=== PATIENT | female | born 1980 | race Caucasian/White ===

== ENCOUNTER 2017-12-22 21:16 | Inpatient (IN) ==
[2017-12-22] MEDS ORDERED: *HR* FentaNYL (PF) 100 MCG/2 ML VIAL IVP ONE (22:29)
[2017-12-22] MEDS ORDERED: *HR* Heparin 5,000 UNIT/ML VIAL IVP ONE (22:48)
[2017-12-22] MEDS ORDERED: *HR* Heparin 5,000 UNIT/ML VIAL IVP PRN ×2 (22:48)
[2017-12-22 22:59] LABS: Basophils # 0.1 K/mcL (0.0-0.2); Basophils % 0.5 %; Eosinophils # 0.5 K/mcL (0.0-0.6); Eosinophils % 5.3 %; Hemoglobin 12.6 g/dL (11.5-15.4); Immature Granulocytes % 0.5 % (0-4); Lymphocytes # 1.6 K/mcL (0.6-4.6); Lymphocytes % 16.9 %; Mean Corpuscular HGB Conc 34.1 g/dL (31.6-35.5); Mean Corpuscular Hemoglobin 30.2 pg (28.0-33.3); Mean Corpuscular Volume 88.7 fL (83.0-100.0); Mean Platelet Volume 9.4 fL (9.4-12.4); Monocytes % 10.1 %; Neutrophils # 6.5 K/mcL (1.6-8.9); Platelet Count 238 K/mcL (140-400); Red Blood Count 4.17 M/mcL (3.82-4.97); Red Cell Distribution Width 13.3 % (11.5-14.5); Segmented Neutrophils % 66.7 %
--- NOTE | 2017-12-22 23:03 | Emergency Department Note ---
Disposition Clinical Impression: Deep vein thrombosis of lower extremity Qualifiers: Affected thrombotic vein of extremity: femoral Chronicity: acute Laterality: left Qualified Code(s): I82.412 - Acute embolism and thrombosis of left femoral vein Disposition: Still a Patient Referrals: Tayla Kaur MD [Primary Care Provider] - General Adult [facility] - General Chief complaint: ED Extremity Problem,Nontraumatic Stated complaint: Left leg DVT Time Seen by Provider: 12/22/17 22:10 Source: patient - History of Present Illness Pain Scale: 8 - Related Data Previous Rx's Medication Instructions Recorded Enoxaparin [Lovenox] 70 mg SQ Q12HR #10 syr 12/21/17 Warfarin [Coumadin] 5 mg PO DAILY #30 tablet 12/21/17 Allergies Allergy/AdvReac Type Severity Reaction Status Date / Time No Known Allergies Allergy Verified 12/21/17 14:47 Past Medical History - Past Medical History Medical history: Reports: no medical history Psychiatric history: Reports: no psych history - Social History Smoking Status: Never smoker Smokeless Tobacco Status: No Alcohol use: Reports: none Drug use: Reports: none Physical Exam - General General appearance: alert, in no apparent distress Course - Reevaluation(s) Reevaluation #1: Attestation Note I examined this patient and my medical decision-making was reviewed with the Resident Physician, KATIE PANIAGUA. I agree with the documented findings, disposition and treatment plan as described except to the extent set forth below. I have personally performed a face to face evaluation on this patient. I have reviewed and agree with the care plan. Briefly: 37-year-old female who I saw yesterday with Dr. Lonny Varela, please see copy of her note for details that encounter. Patient briefly was 5 days and with left leg pain and swelling Doppler study showed a very proximal superficial femoral vein or DVT. Patient was offered Cymbalta but declined because she is breast-feeding she was discharged home with Coumadin and Lovenox. Patient returns today saying that the pain is worsening and she is concerned. Denies shortness breath or chest pain. She is afebrile stable vital signs. Patient was offered fentanyl for pain control but declined because she is nursing. Patient will get a PT ED BMP and CBC. She will be heparinized and admitted for further evaluation and management. Time: 23:01 Vital Signs Temperature 98.1 F 12/22/17 21:26 Pulse Rate 78 12/22/17 21:26 Respiratory Rate 16 12/22/17 21:26 Blood Pressure 135/91 12/22/17 21:26 O2 Sat by Pulse Oximetry 98 12/22/17 21:26 Temperature 98.1 F 12/22/17 21:26 Pulse Rate 78 12/22/17 21:26 Respiratory Rate 16 12/22/17 21:26 Blood Pressure 135/91 12/22/17 21:26 O2 Sat by Pulse Oximetry 98 12/22/17 21:26 Oxygen Delivery Oxygen Delivery Room Air Medical Decision Making - Lab Data Result diagrams: 12/22/17 22:30 Lab Results 12/22/17 Range/Units 22:30 WBC 9.7 (4.3-11.1) K/mcL RBC 4.17 (3.82-4.97) M/mcL Hgb 12.6 (11.5-15.4) g/dL Hct 37.0 (35.3-44.9) % MCV 88.7 (83.0-100.0) fL MCH 30.2 (28.0-33.3) pg MCHC 34.1 (31.6-35.5) g/dL RDW 13.3 (11.5-14.5) % Plt Count 238 (140-400) K/mcL MPV 9.4 (9.4-12.4) fL Immature Gran % 0.5 (0-4) % Seg Neutrophils % 66.7 % Lymphocytes % 16.9 % Monocytes % 10.1 % Eosinophils % 5.3 % Basophils % 0.5 % Neutrophils # 6.5 (1.6-8.9) K/mcL Lymphocytes # 1.6 (0.6-4.6) K/mcL Monocytes # 1.0 (0.0-1.3) K/mcL Eosinophils # 0.5 (0.0-0.6) K/mcL Basophils # 0.1 (0.0-0.2) K/mcL
--- NOTE | 2017-12-22 23:14 | Emergency Department Note ---
Disposition Clinical Impression: Deep vein thrombosis of lower extremity Qualifiers: Affected thrombotic vein of extremity: femoral Chronicity: acute Laterality: left Qualified Code(s): I82.412 - Acute embolism and thrombosis of left femoral vein Disposition: Admitted As Inpatient Condition: Good Extremity Problem HPI - General Chief complaint: ED Extremity Problem,Nontraumatic Stated complaint: Left leg DVT Time Seen by Provider: 12/22/17 22:10 Source: patient Mode of arrival: private vehicle Limitations: no limitations Nursing Notes Reviewed: Yes Vital Signs Reviewed: Yes - History of Present Illness HPI Narrative: 37-year-old female 6 days who presents to the ER with a chief complaint of left lower shimmy pain. Patient was seen here yesterday for left lower shimmy pain and was diagnosed with a proximal DVT. She was started on Lovenox as well as Coumadin. She reports today the pain intensified which prompted her to come back. She denies any chest pain or shortness of breath. She reports compliance with her medications. She is concerned because she can feel something up into her groin. No other complaints. Pt Subjective Complaint: extremity pain, extremity swelling Onset (ago): day(s) Consistency: constant Injury Location: left, lower extremity Pain Scale: 8 Radiation: none Improves with: nothing Worsens with: nothing Associated symptoms: Reports: denies other symptoms - Related Data Previous Rx's Medication Instructions Recorded Enoxaparin [Lovenox] 70 mg SQ Q12HR #10 syr 12/21/17 Warfarin [Coumadin] 5 mg PO DAILY #30 tablet 12/21/17 Allergies Allergy/AdvReac Type Severity Reaction Status Date / Time No Known Allergies Allergy Verified 12/21/17 14:47 All systems ED: reviewed and negative except as stated. Cardiovascular: Denies: chest pain Respiratory: Denies: dyspnea Musculoskeletal: Reports: other (Left lower extremity pain, swelling) Past Medical History - Past Medical History Attestation: Yes The following information was validated with the patient. Source: patient Medical history: Reports: no medical history Psychiatric history: Reports: no psych history - Social History Smoking Status: Never smoker Smokeless Tobacco Status: No Alcohol use: Reports: none Drug use: Reports: none Physical Exam - General Limitations: no limitations General appearance: alert, in no apparent distress - Head Head exam: atraumatic, normocephalic - Eye Eye exam: Present: normal appearance - ENT ENT exam: normal exam - Neck Neck exam: Present: normal inspection, full ROM - Chest Chest inspection: Present: normal inspection, symmetric chest wall rise - Respiratory Respiratory exam: Present: normal lung sounds bilaterally - Cardiovascular Cardiovascular exam: Present: regular rate, normal rhythm, normal heart sounds - Abdominal Exam Abdominal exam: Present: soft, Non-Tender. Absent: tenderness - Extremities Exam Extremities exam: Present: normal inspection, full ROM - Expanded Upper Extremity Exam Shoulder exam: Present: normal inspection, full ROM Arm exam: Present: normal inspection, full ROM Elbow exam: Present: normal inspection, full ROM Forearm/Wrist exam: Present: normal inspection, full ROM Hand exam: Present: normal inspection, full ROM - Expanded Lower Extremity Exam Hip/Pelvis exam: Present: normal inspection, full ROM Upper leg exam: Present: normal inspection, full ROM Knee exam: Present: normal inspection, full ROM Lower leg exam: Present: normal inspection, full ROM, swelling (1+ swelling to the left lower shimmy.) Ankle exam: Present: normal inspection, full ROM Foot/toe exam: Present: normal inspection, full ROM Neurovascular/Tendon exam: Present: normal capillary refill. Absent: pulse deficit, motor deficit, sensory deficit - Skin Skin exam: Present: warm Course Course Narrative: Patient seen and examined. Neurovascularly intact in the left lower extremity. Plan to heparinize the patient check labs and admit for failed outpatient therapy. Patient was offered fentanyl and declines due to concern for breast- feeding issue. - Reevaluation(s) Reevaluation #1: Patient was concerned about pain medication while breast-feeding. Agreeable with Motrin at this time. Discussed the rationale for heparinizing given her proximal clot and concern for potential propagation with her pain. Patient agreeable with our plan and for admission. Vital Signs Temperature 98.1 F 12/22/17 21:26 Pulse Rate 78 12/22/17 21:26 Respiratory Rate 16 12/22/17 21:26 Blood Pressure 135/91 12/22/17 21:26 O2 Sat by Pulse Oximetry 98 12/22/17 21:26 Temperature 98.1 F 12/22/17 21:26 Pulse Rate 78 12/22/17 21:26 Respiratory Rate 16 12/22/17 21:26 Blood Pressure 135/91 12/22/17 21:26 O2 Sat by Pulse Oximetry 98 12/22/17 21:26 Oxygen Delivery Oxygen Delivery Room Air Extremity Problem, Nontraumati - MDM Narrative Medical decision making narrative: 37-year-old female 6 days with left lower extremity DVT. Proximal just adjacent to the confluence to the iliac. Worsening pain today which prompted reevaluation. She is neurovascularly intact in the left lower extremity. Her pain is controlled at this time. Given the proximity of her DVT as well as pain there is always concern for potential propagation. These findings we chose to heparinize the patient and admit for further evaluation. She has no symptoms to suggest pulmonary embolism, denies chest pain or shortness of breath. No oxygen requirement. No other complaints. - Lab Data Lab results reviewed: Yes I reviewed the patient's lab results. Result diagrams: 12/22/17 22:30 12/22/17 22:30 Lab Results 12/22/17 12/22/17 12/22/17 Range/Units 22:30 22:30 22:30 WBC 9.7 (4.3-11.1) K/mcL RBC 4.17 (3.82-4.97) M/mcL Hgb 12.6 (11.5-15.4) g/dL Hct 37.0 (35.3-44.9) % MCV 88.7 (83.0-100.0) fL MCH 30.2 (28.0-33.3) pg MCHC 34.1 (31.6-35.5) g/dL RDW 13.3 (11.5-14.5) % Plt Count 238 (140-400) K/mcL MPV 9.4 (9.4-12.4) fL Immature Gran % 0.5 (0-4) % Seg Neutrophils % 66.7 % Lymphocytes % 16.9 % Monocytes % 10.1 % Eosinophils % 5.3 % Basophils % 0.5 % Neutrophils # 6.5 (1.6-8.9) K/mcL Lymphocytes # 1.6 (0.6-4.6) K/mcL Monocytes # 1.0 (0.0-1.3) K/mcL Eosinophils # 0.5 (0.0-0.6) K/mcL Basophils # 0.1 (0.0-0.2) K/mcL APTT 31.2 (26.0-36.0) Seconds Sodium 138 (136-145) mEq/L Potassium 4.1 (3.5-5.1) mEq/L Chloride 106 (98-107) mEq/L Carbon Dioxide 26 (23-29) mEq/L BUN 9 (6-20) mg/dL Creatinine 0.55 L (0.60-1.20) mg/dL Est GFR ( Amer) > 60 (> 60) Est GFR (Non-Af Amer) > 60 (> 60) BUN/Creatinine Ratio 16 (6-26) Glucose 101 (70-105) mg/dL Calculated Osmolality 285 (280-300) Calcium 9.2 (8.6-10.3) mg/dL S.B.A.R. - Estefania.Vera.AMarge Situation: Demographics, MOA Background: Presenting Complaint, Relevant PMH, Meds, & Allergies Assessment: Course and respsone to treatment, Exam Concerns, Patient/Family Expectation, Pertinant Lab Results Recommendation: Barrier(s) to disposition, Recommendation based on pending studies, treatments, or consults S.B.A.RPiper Report Given to: Dr. Poly PerezAMarge Repor Time: 23:58
[2017-12-22 23:17] LABS: BUN/Creatinine Ratio 16 (6-26); Blood Urea Nitrogen 9 mg/dL (6-20); Calcium 9.2 mg/dL (8.6-10.3); Carbon Dioxide 26 mEq/L (23-29); Chloride 106 mEq/L (98-107); Glucose 101 mg/dL (70-105); Osmolality,Calculated 285 (280-300); Potassium 4.1 mEq/L (3.5-5.1); Sodium 138 mEq/L (136-145); eGFR For African Americans > 60 (> 60); eGFR For Non-African Americans > 60 (> 60)
[2017-12-22] MEDS ORDERED: Ibuprofen 600 MG TABLET PO ONE (23:18)
[2017-12-22] MEDS: Heparin 25,000 UNIT/500 ML D5W 25,000 UNIT/500 ML BAG IVC SCH (23:42)
[2017-12-23] MEDS ORDERED: Naloxone 0.4 MG/ML INJ IVP PRN (02:32)
[2017-12-23] MEDS ORDERED: Isovue-370 500 ML INFUS..BTL IV ONE (02:42)
--- NOTE | 2017-12-23 02:53 | Internal Med History&Physical ---
Date of Encounter: 12/23/17 Time of Encounter: 00:55 Internal Medicine - H&P: HPI Chief complaint: LLE DVT; pain Admitted From: Emergency Dept Plans for Post Hospital Care: Home History of present illness: Ms. Salguero is a 37 year old female who presents to the ER tonight with worsening pain, swelling, and cramps in her left leg. She also has developed pain in her left inguinal/pelvic area as well. She was diagnosed with left lower extremity DVT in the ER yesterday. She was discharged home on Lovenox and Coumadin and she returned today with worsening symptoms. Given her symptoms , failed outpatient treatment, and concern for worsening DVT, she was admitted to the hospitalist service. I discussed the case with the ER staff and reviewed her Doppler study of her left lower extremity. The Doppler study reveals occlusive DVT of the left external iliac vein and common femoral vein. This is a proximal DVT and at high risk for embolization to her lungs. I accepted the patient on admission and I saw her on the floor. Upon my assessment of the patient, she has been started on heparin drip and is feeling better now. Her left extremity is significantly swollen compared to right lower extremity. She is 6 days and delivered vaginally at [facility] in [place]. and delivery were uneventful. She was discharged home several days ago and then noted swelling and pain in her left leg about 2-3 days ago. She was diagnosed with DVT yesterday and started on appropriate treatment measures. She denies any chest pain, palpitations, or shortness of breath. She does complain, however, of pain in her pelvic and left inguinal area now which are new compared to yesterday. This was her third and delivery, and her first 2 pregnancies and deliveries were uneventful. Family history is negative for any DVT or PE. She denies any extensive or prolonged travel. She did not require bed rest during . She is an active individual and is a runner. She does not smoke. She does not take any hormonal contraceptives. However, prior to this , she required some hormonal treatments as this last was via in vitro fertilization. Past Med Surg Social Fam HX - Past Medical History Attestation: Yes The following information was validated with the patient. Source: patient, old records reviewed Medical history: no medical history Psychiatric history: no psych history - Past Surgical History Surgical History: no surgical history - Social History Smoking Status: Never smoker Smokeless Tobacco Status: No Alcohol use: none Drug use: none Occupational status: employed Current living situation: Home, With Family Activity Level: Independent ambulation, Very active Recent Out of Country Travel Within the Last 8 Weeks: No - Family History Mother Living Status: Still Living Father Living Status: Still Living - Additional Family History Additional family history: No FH DVT/PE. Internal Medicine - H&P: Meds Enoxaparin [Lovenox] 70 mg SQ Q12HR #10 syr 12/21/17 [Rx] Warfarin [Coumadin] 5 mg PO DAILY #30 tablet 12/21/17 [Rx] 3 Allergy/AdvReac Type Severity Reaction Status Date / Time No Known Allergies Allergy Verified 12/21/17 14:47 - Constitutional Constitutional: no chills, no fever(s), no night sweats - EENT Eyes: no blurry vision, no change in vision Ears: no ear pain, no tinnitus Nose, mouth and throat: no nasal congestion, no nasal discharge, no sinus pressure, no sore throat - Cardiovascular Cardiovascular ROS IM: no chest pain, no dyspnea, no dyspnea on exertion, no lightheadedness, no palpitations, no paroxysmal nocturnal dyspnea - Respiratory Respiratory: no cough, no dyspnea, no hemoptysis, no dyspnea on exertion, no wheezing, no chest congestion - Gastrointestinal Gastrointestinal: no abdominal pain, no diarrhea, no hematemesis, no hematochezia, no melena, no nausea, no vomiting - Genitourinary Genitourinary: pelvic pain (left pelvic/groin area), no dysuria, no flank pain, no hematuria - Musculoskeletal Musculoskeletal ROS IM: muscle cramps, myalgias, no back pain Additional comments: pain/swelling/cramping of left leg up to groin and lower pelvis - Integumentary Integumentary IM: no rash, no jaundice - Neurological Neurological ROS: no dizziness, no focal weakness, no frequent falls, no weakness - Psychiatric Psychiatric: no anxiety, no depression - Endocrine Endocrine IM: no polydipsia, no polyuria - Hematologic/Lymphatic Hematologic/Lymphatic: no easy bruising, no lymphadenopathy - Allergic/Immunologic Allergic/Immunologic: no wheezing, no GI upset with certain foods - Constitutional Vitals: Temp Pulse Resp BP Pulse Ox 97.7 F 74 14 126/75 97 05/14/18 01:04 12/23/17 01:04 12/23/17 01:04 12/23/17 01:04 12/23/17 01:04 General appearance: Present: cooperative, A&O X 3, pleasant, no acute distress, answers questions appropriately - Head Head exam: Present: normal inspection - Eye Eye exam: Present: EOMI, normal appearance, PERRL. Absent: scleral icterus Pupils: Present: normal accommodation - ENT ENT exam: Present: mucous membranes moist, normal exam - Neck Neck exam general surgery: Present: full ROM, supple. Absent: tenderness, nuchal rigidity, thyromegaly - Respiratory Respiratory exam: Present: CTAB. Absent: chest wall tenderness, rales, respiratory distress, rhonchi, wheezes - Cardiovascular Cardiovascular exam: Present: RRR, +S1, +S2. Absent: diastolic murmur, systolic murmur - GI/Abdominal GI/Abdominal exam: Present: normal bowel sounds, soft. Absent: guarding, hepatomegaly, mass, rebound, splenomegaly - Additional comments: pain upon palpation of left femoral/inguinal area and into LLQ/pelvic region - Extremities Exam Extremities exam: Present: calf tenderness (left), full ROM, normal capillary refill, tenderness (left calf/thigh/inguinal area), warm. Absent: joint swelling Additional comments: left leg larger/asymmetrical compared to right leg - Back Exam Back exam: Present: normal inspection. Absent: CVA tenderness (L), CVA tenderness (R) - Neurological Exam Neurological exam: Present: alert, CN II-XII intact, oriented X3, no focal deficits - Psychiatric Psychiatric exam: Present: normal affect, normal mood - Skin Skin exam: Present: dry, warm. Absent: rash Internal Med - H&P Results - Labs CBC & Chem 7: 12/22/17 22:30 12/22/17 22:30 Labs: Preliminary report of LLE Doppler reviewed -- as noted above - VTE Reasons for not Prescribing Prophylaxis: Not indicated-Anticoagulated or INR therapeutic - Assessment and plan (1) DVT (deep venous thrombosis) Current Visit: Yes Status: Acute Assessment and plan: 1. Patient failed outpatient treatment and LLE pain/swelling worse now despite Lovenox bridge and Coumadin therapy initiated at first ER visit. 2. Heparin drip started and will continue until symptoms improved and INR therapeutic. 3. Given the extensive nature of LLE DVT into iliac vessels, will proceed with CT abdomen/pelvis to evaluate for IVC thrombus. 4. Consult HEM/ONC for possible hypercoagulable work-up and treatment guidance in the setting of and . 5. , in and of itself, is a hypercoagualble state and thus no further work up may be necessary. Nonetheless, given the clot burden and lack of other risk factors, will ask HEM/ONC for guidance. 6. Consider vascular surgery consult and IVC filter if there is evidence of IVC thrombus. Qualifiers: DVT location: lower extremity Affected thrombotic vein of extremity: iliac Chronicity: acute Laterality: left Qualified Code(s): I82.422 - Acute embolism and thrombosis of left iliac vein (2) Lactating mother Current Visit: Yes Status: Acute Assessment and plan: 1. Mother is breast feeding. 2. Heparin and Coumadin safest anticoagulation for mother and baby -- discussed with pharmacy.
[2017-12-23 05:34] LABS: Basophils % 0.4 %; Eosinophils # 0.4 K/mcL (0.0-0.6); Eosinophils % 4.6 %; Hematocrit 31.8 % (35.3-44.9); Hemoglobin 11.1 g/dL (11.5-15.4); Immature Granulocytes % 0.6 % (0-4); Lymphocytes # 1.9 K/mcL (0.6-4.6); Lymphocytes % 21.2 %; Mean Corpuscular HGB Conc 34.9 g/dL (31.6-35.5); Mean Corpuscular Hemoglobin 30.3 pg (28.0-33.3); Mean Corpuscular Volume 86.9 fL (83.0-100.0); Monocytes # 1.1 K/mcL (0.0-1.3); Monocytes % 12.4 %; Neutrophils # 5.5 K/mcL (1.6-8.9); Platelet Count 189 K/mcL (140-400); Red Blood Count 3.66 M/mcL (3.82-4.97); Red Cell Distribution Width 13.4 % (11.5-14.5); Segmented Neutrophils % 60.8 %
[2017-12-23 05:39] LABS: INR 1.3; Prothrombin Time 14.4 Seconds (9.4-12.1)
[2017-12-23 05:54] LABS: Alanine Aminotransferase 9 Units/L (7-52); Albumin/Globulin Ratio 1.2 (1.1-2.2); Alkaline Phosphatase 106 Units/L (34-104); Aspartate Amino Transferase 11 Units/L (13-39); BUN/Creatinine Ratio 18 (6-26); Bilirubin,Total 0.3 mg/dL (0.3-1.0); Blood Urea Nitrogen 7 mg/dL (6-20); Calcium 8.4 mg/dL (8.6-10.3); Carbon Dioxide 23 mEq/L (23-29); Chloride 109 mEq/L (98-107); Globulin 2.5 g/dL (2.4-3.5); Glucose 85 mg/dL (70-105); Osmolality,Calculated 281 (280-300); Potassium 3.8 mEq/L (3.5-5.1); Sodium 137 mEq/L (136-145); Total Protein 5.5 g/dL (6.4-8.9); eGFR For African Americans > 60 (> 60); eGFR For Non-African Americans > 60 (> 60)
[2017-12-23] MEDS: 0.9 % Sodium Chloride 1,000 ML IVC SCH ×2 (06:20→15:26)
--- NOTE | 2017-12-23 08:25 | Internal Med Progress Note ---
Date of Encounter: 12/23/17 Time of Encounter: 08:22 - Assessment and plan (1) DVT (deep venous thrombosis) Current Visit: Yes Status: Acute Assessment and plan: Patient failed outpatient treatment and LLE pain/swelling worse now despite Lovenox bridge and Coumadin therapy initiated at first ER visit. CT abdomen/pelvis negative for IVC thrombus - Continue Heparin drip and bridge to coumadin - Heme/Onc consulted, recommendations appreciated - Vascular Surgery consulted for consideration of IVC filter, recommendations appreciated. Qualifiers: DVT location: lower extremity Affected thrombotic vein of extremity: iliac Chronicity: acute Laterality: left Qualified Code(s): I82.422 - Acute embolism and thrombosis of left iliac vein (2) Lactating mother Current Visit: Yes Status: Acute Assessment and plan: Breast feeding mother. Discussed with pharmacy on admission on safety and noted that heparin and coumadin are safe anticoagulants. - Time Spent With Patient Total time spent is greater than 50% in coordination of care (as documented) at patient's floor/unit and/or counseling patient: - Subjective Interval history: No acute events. She denies chest pain, SOB, palpitations, pain outside of leg pain. - Constitutional Vitals: Temp Pulse Resp BP Pulse Ox 98.2 F 52 18 122/81 98 12/23/17 07:12 12/23/17 07:12 12/23/17 07:12 12/23/17 07:12 12/23/17 07:12 General appearance: Present: cooperative, A&O X 3, pleasant, no acute distress, answers questions appropriately Exam: - Head Head exam: Present: normal inspection - Eye Eye exam: Present: EOMI, normal appearance, PERRL. Absent: scleral icterus Pupils: Present: normal accommodation - ENT ENT exam: Present: mucous membranes moist, normal exam - Neck Neck exam general surgery: Present: full ROM, supple. - Respiratory Respiratory exam: respiratory distress - Cardiovascular Cardiovascular exam: Present: RRR,. Absent: diastolic murmur, systolic murmur - Extremities Exam Extremities exam: Absent: joint swelling Additional comments: left leg larger than right leg - Skin Skin exam: Present: dry, warm. Absent: rash Note: Patient requests to limit physical exam since is in room. Internal Medicine: Result - Labs CBC & Chem 7: 12/23/17 05:21 12/23/17 05:21 Labs: Short CBC 12/23/17 Range/Units 05:21 WBC 9.0 (4.3-11.1) K/mcL Hgb 11.1 L D (11.5-15.4) g/dL Hct 31.8 L (35.3-44.9) % Plt Count 189 (140-400) K/mcL Neutrophils # 5.5 (1.6-8.9) K/mcL BMP 12/23/17 05:21 Sodium 137 Potassium 3.8 Chloride 109 H Carbon Dioxide 23 BUN 7 Creatinine 0.40 L Glucose 85 Calcium 8.4 L Liver Function 12/23/17 Range/Units 05:21 Total Bilirubin 0.3 (0.3-1.0) mg/dL AST 11 L (13-39) Units/L ALT 9 (7-52) Units/L Alkaline Phosphatase 106 H (34-104) Units/L Albumin 3.0 L (3.5-5.7) g/dL - ABG Interpretation ABG results: PT/INR, D-dimer PT 14.4 Seconds (9.4-12.1) H 12/23/17 05:21 - Impressions Impressions Abdomen/Pelvis CT 12/23/17 02:42 IMPRESSION: Thrombi are identified in the left common femoral vein as well as the left common iliac vein with extension into both the left external and internal iliac veins. There is no definite evidence for extension to the inferior vena cava. D/ / Gato oMntesinos MD / Gato Montesinos MD Interpreting Provider: Gato Montesinos MD - VTE Reasons for not Prescribing Prophylaxis: Not indicated-Anticoagulated or INR therapeutic Consult Discharge Plan - Plan Referrals: Tayla Kaur MD [Primary Care Provider] -
[2017-12-23] MEDS: Acetaminophen 325 MG TABLET PO PRN ×2 (09:09→15:12)
--- NOTE | 2017-12-23 14:05 | Vascular/Endovasc Consult Note ---
Date of Encounter: 12/23/17 Time of Encounter: 12:30 Assessment and Plan (1) DVT (deep venous thrombosis) Current Visit: Yes Status: Acute The pathophysiology and natural history of venous thromboembolism was discussed the patient WAS are answered. The patient is a left iliac deep vein thrombosis. She was initially treated with Lovenox at 1.5 mg/kg per day and was being transitioned to Coumadin. However symptoms worsened over 24 hours so she was admitted and started on a heparin drip. She reports decreased slightly decreased symptoms since admission. However still has left sided pelvic and inguinal pain. She reports that her edema has decreased since admission. It did not appear that she failed anticoagulation at this point. Recommend continued intravenous heparin until the patient is therapeutic on Coumadin therapy and her goal INR should be 2.0-3.0. At this time an inferior vena cava filter is not indicated. If the patient continues to experience persistent symptoms of leg pain and swelling, she may be a candidate for venous mechanical thrombectomy. The risks, benefits and alternatives were discussed and all questions were answered. The patient will be reassessed tomorrow for further evaluation. Qualifiers: DVT location: lower extremity Affected thrombotic vein of extremity: iliac Chronicity: acute Laterality: left Qualified Code(s): I82.422 - Acute embolism and thrombosis of left iliac vein - History of Present Illness Consult date: 12/23/17 Requesting physician: Prosper Ramirez Consult reason: Deep vein thrombosis Chief complaint: Left lower extremity DVT History of present illness: Ms. Salguero is a 37 year old female who recently delivered her child. She reports that prior to delivery she was extremity bilateral lower extremity edema. She began to experience left lower extremity pain and swelling aorta the emergency room she was diagnosed with a left lower extremity deep vein thrombosis. She was started on Lovenox at 1.5 mg/kg daily and Coumadin therapy. This happened on 12/21/2017. The patient return to emergency room on 12/22/2017 with worsening symptoms in the left lower extremity with edema and pelvic pain. Continue his CT scan revealed iliac vein thrombosis. She was admitted and started on heparin drip and Coumadin for long-term oral anticoagulation. Vascular surgery was counseled for further evaluation. The patient currently denies chest pain or shortness of breath. Past Med Surg Social Fam HX - Past Medical History Medical history: no medical history Psychiatric history: no psych history - Past Surgical History Surgical History: no surgical history - Social History Smoking Status: Never smoker Smokeless Tobacco Status: No Alcohol use: none Drug use: none - Family History Mother Living Status: Still Living Father Living Status: Still Living Medications and Allergies Enoxaparin [Lovenox] 70 mg SQ Q12HR 12/23/17 [History] Pnv No.122/Iron/Folic Acid [ Multi Tablet] 1 tab PO DAILY 12/23/17 [ History] Warfarin [Coumadin] 5 mg PO DAILY 12/23/17 [History] 3 Allergy/AdvReac Type Severity Reaction Status Date / Time No Known Allergies Allergy Verified 12/23/17 12:18 All Systems Review: The remainder of the systems were reviewed and are negative - Constitutional Constitutional: no chills, no fever(s) - Cardiovascular Cardiovascular: no chest pain at rest, no dyspnea at rest - Respiratory Respiratory: no cough Exam Vital Signs, Last 4 Hours Temp Pulse Resp BP Pulse Ox 12/23/17 11:38 97.7 F 60 16 102/68 97 General: Present: Conversant, No Apparent Distress HEENT: Present: Trachea midline, Pupils equal Neck: Absent: JVD, Lymphadenopathy Cardiac: Present: Reg Rate and Rhythm, Normal S1 and S2, No Murmur Lungs: Present: Normal Breath Sounds, No Wheeze, Rales, Rhonchi Neuro: Present: Alert and responsive, No focal deficits noted, Motor nerves grossly intact, Sensory nerves grossly intact Abdomen: Present: Soft, Non-tender. Absent: Masses Vascular: Present: Normal capillary refill, Pulse, normal, Edema (1+ left lower extremity edema, no right lower extremity edema). Absent: Cyanosis Skin: Present: No rashes noted on visualized skin Musculoskeletal: Present: No Chest Wall Tenderness Consult Discharge Plan - Plan Referrals: Tayla Kaur MD [Primary Care Provider] -
--- NOTE | 2017-12-23 14:27 | Oncology Inp Consult Note ---
<David Black - Last Filed: 12/24/17 10:56> Date of Encounter: 12/23/17 - Data of Consult Requesting Physician: Lamin Mccann MD Primary Care Provider: Tayla Kaur Family Provider: Tayla Kaur - Consult Narrative History of present illness: Ms. Salguero is a 37 year old female Medications and Allergies Enoxaparin [Lovenox] 70 mg SQ Q12HR 12/23/17 [History] Pnv No.122/Iron/Folic Acid [ Multi Tablet] 1 tab PO DAILY 12/23/17 [ History] Warfarin [Coumadin] 5 mg PO DAILY 12/23/17 [History] 3 Allergy/AdvReac Type Severity Reaction Status Date / Time No Known Allergies Allergy Verified 12/23/17 12:18 Oncology - Exam - Constitutional Vitals: Temp Pulse Resp BP Pulse Ox 98.7 F 71 16 124/81 96 12/24/17 07:10 12/24/17 07:10 12/24/17 07:10 12/24/17 07:10 12/24/17 07:10 Oncology - Results Labs: Short CBC 12/23/17 12/24/17 Range/Units 22:45 02:00 WBC 9.3 (4.3-11.1) K/mcL Hgb 11.0 L 10.9 L (11.5-15.4) g/dL Hct 32.5 L 31.9 L (35.3-44.9) % Plt Count 216 (140-400) K/mcL Urine 12/24/17 Range/Units 00:35 Urine Color Yellow (Yellow) Urine Clarity Cloudy A (Clear) Urine pH 6.0 (5.0-8.0) pH Units Ur Specific [place] 1.021 (1.010-1.025) Urine Protein Negative (Neg-Trace) mg/dL Urine Glucose (UA) Normal (Normal) mg/dL Consult Discharge Plan - Plan Referrals: Tayla Kaur MD [Primary Care Provider] - - Attending Attestation seen and examined patient and agree with assessment cruz plan. 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 It is a provoked clot. Difficult to say whether she is having worsening symptoms with 1.5 mg/kg lovenox. On heparin gtt. Will continue and see how she does and hopefulkly avoid filter. She may need thrombectomy though. If symptoms do improve, would reommend 1 mg/kg lovenox bid with coumadin eventually as she is breast feeding. <Winter Williamson - Last Filed: 12/24/17 12:33> Date of Encounter: 12/23/17 Time of Encounter: 14:27 Assessment and Plan (1) DVT (deep venous thrombosis) Status: Acute Assessment and plan: Provoked- patient is with recent uncomplicated vaginal delivery. No thrombophilia workup warranted. Agree with heparin or lovenox bridge to coumadin. She will need short term anticoagulation (3-4 months) given that this is the patients first provoked thrombotic event. If she is not therapeutic at time for discharge would recommend lovenox bridge dosing at 1 mg/kg/dose every 12 hours Will consult manager social work for coumadin clinic referral. Recommend patient continue heparin at least through night prior to transitioning to heparin and will re-evaluate her symptoms in morning. Vascular consult reviewed-agree with re-assessment tomorrow and to evaluate potential role for thrombectomy if symptoms persist. Unfortunately, we are unable to ascertain whether her thrombosis has extended into the internal/external iliac veins as viewed on CT or if this was present at time of diagnosis-this was not able to be assessed properly on venous doppler due to the fact that this is not well visualized on doppler studies. She reports that her edema may be improving however, her left inguinal pain persists. Nonetheless, her clot burden may warrant thrombectomy. Please refer to Dr. Black's attestation below for additional details. Qualifiers: DVT location: lower extremity Affected thrombotic vein of extremity: iliac Chronicity: acute Laterality: left Qualified Code(s): I82.422 - Acute embolism and thrombosis of left iliac vein - Data of Consult Patient: new to practice Consult date: 12/23/17 Requesting Physician: Reynold Pang MD Primary Care Provider: Tayla Kaur Family Provider: Tayla Kaur - Consult Narrative Reason for consult: Acute LLE DVT History of present illness: Ms. Salguero is a 37 year old female with no prior medical history. Apparently shortly following her delivery she was evaluated at an outside [facility] system for LLE pain/edema and was prescribed prednisone to help with the swelling. She then initially presented to [facility] ER on 12/21/17 with report of LLE pain/edema. She was 5 days at this time following uncomplicated vaginal delivery. Venous doppler revealed acute thrombosis in the left distail iliac vein and common femoral vein. She was started on lovenox to heparin bridge. She is her . She presented to [facility] ED on 12/22 with report of worsening LLE pain/edema, states she discussed with her HOUSE MOTHER who asked that she present to ER for further evaluation. CT abdomen/pelvis on 12/23/17 reveals "Thrombi are identified in the left common femoral vein as well as the left common iliac vein with extension into both the left external and internal iliac veins. There is no definite evidence for extension to the inferior vena cava." She was admitted with heparin gtt bridge to coumadin. Vascular has been consulted and recommended against IVC at this juncture, but may may need thrombectomy in future if symptoms do not improve. Past Med Surg Social Fam HX - Past Medical History Medical history: no medical history Psychiatric history: no psych history - Past Surgical History Surgical History: no surgical history - Social History Smoking Status: Never smoker Smokeless Tobacco Status: No Alcohol use: none Drug use: none - Family History Mother Living Status: Still Living Father Living Status: Still Living Constitutional: Present: fatigue. Absent: anorexia, fever(s) Eyes: Absent: change in vision Nose, mouth and throat: Absent: dysphagia Cardiovascular: Absent: chest pain, irregular heart rhythm Respiratory: Absent: cough, dyspnea, hemoptysis, pain on inspiration Gastrointestinal: Absent: abdominal pain, hematemesis, hematochezia, melena, nausea, vomiting Genitourinary: Absent: dysuria, hematuria Musculoskeletal: Present: muscle weakness Additional comments: LLE pain-mainly to groin area with ambulation Integumentary: Present: as per HPI Additional comments: LLE edema Neurological: Absent: focal weakness, frequent falls Hematologic/Lymphatic: Present: as per HPI Oncology - Exam - Constitutional Vitals: Temp Pulse Resp BP Pulse Ox 97.7 F 60 16 102/68 97 12/23/17 11:38 12/23/17 11:38 12/23/17 11:38 12/23/17 11:38 12/23/17 11:38 General appearance: cooperative, no acute distress, no febrile - Head Head exam: Present: atraumatic - ENT ENT exam: Present: mucous membranes moist - Respiratory Respiratory exam: Present: CTAB. Absent: respiratory distress - Cardiovascular Cardiovascular exam: Present: RRR, +S1, +S2 - GI/Abdominal GI/Abdominal exam: Present: normal bowel sounds, soft. Absent: tenderness - Extremities Exam Additional comments: LLE edema extending into thigh - Neurological Exam Neurological exam: Present: alert, oriented X3, no focal deficits, strengths equal and symetr throughout - Psychiatric Psychiatric exam: Present: normal affect, normal mood Oncology - Results Labs: Short CBC 12/23/17 Range/Units 05:21 WBC 9.0 (4.3-11.1) K/mcL Hgb 11.1 L D (11.5-15.4) g/dL Hct 31.8 L (35.3-44.9) % Plt Count 189 (140-400) K/mcL Neutrophils # 5.5 (1.6-8.9) K/mcL BMP 12/23/17 05:21 Sodium 137 Potassium 3.8 Chloride 109 H Carbon Dioxide 23 BUN 7 Creatinine 0.40 L Glucose 85 Calcium 8.4 L Liver Function 12/23/17 Range/Units 05:21 Total Bilirubin 0.3 (0.3-1.0) mg/dL AST 11 L (13-39) Units/L ALT 9 (7-52) Units/L Alkaline Phosphatase 106 H (34-104) Units/L Albumin 3.0 L (3.5-5.7) g/dL
[2017-12-23] MEDS ORDERED: *HR* Warfarin 5 MG TABLET PO SCH (18:00)
[2017-12-23] MEDS ORDERED: Warfarin perPT PO PRN (18:00)
[2017-12-23] MEDS: Heparin 25,000 UNIT/500 ML D5W 25,000 UNIT/500 ML BAG IVC SCH (20:56)
[2017-12-23 22:56] LABS: Hematocrit 32.5 % (35.3-44.9)
--- NOTE | 2017-12-24 00:05 | OB/GYN Consult Note ---
Date of Encounter: 12/24/17 Time of Encounter: 00:05 Assessment and Plan (1) Status post normal vaginal delivery Current Visit: Yes Status: Acute day 6 from uncomplicated Monitor lochia - education on normal versus abnormal lochia provided to patient Pelvic ultrasound in a.m. to rule out cause of hgb drop (2) Breast feeding status of mother Current Visit: Yes Status: Acute consult when necessary (3) Deep vein thrombosis of lower extremity Current Visit: Yes Status: Acute Qualifiers: Affected thrombotic vein of extremity: femoral Chronicity: acute Laterality: left Qualified Code(s): I82.412 - Acute embolism and thrombosis of left femoral vein History of Present Illness Consult date: 12/24/17 Requesting physician: Hebert Bryant Reason for consult: medical complication Chief complaint: left hip pain/DVT History of present illness: Ms. Salguero is a 37-year-old who is 6 days from an uncomplicated spontaneous vaginal delivery at [facility] in [place]. Her primary OB is Dr. Viridiana Wise. She reports in the days leading up to her labor she began to experience some left hip pain and swelling and since delivery has been diagnosed with a DVT in the "left femoral vein, left common iliac vein with extension to the left internal and external iliac veins." She reports minimal bleeding and denies headache, blurry vision, fevers, right upper quadrant pain. She reports she is breast-feeding. She has been able to tolerate a regular diet. She has been voiding independently. She reports she has had several bowel movements since delivery and all have been her usual consistency and color. She reports some slight pain in the left hip. Past Med Surg Social Fam HX - Past Medical History Medical history: no medical history Psychiatric history: no psych history - Past Surgical History Surgical History: no surgical history - Social History Smoking Status: Never smoker Smokeless Tobacco Status: No Alcohol use: none Drug use: none - Family History Mother Living Status: Still Living Father Living Status: Still Living Medications and Allergies Enoxaparin [Lovenox] 70 mg SQ Q12HR 12/23/17 [History] Pnv No.122/Iron/Folic Acid [ Multi Tablet] 1 tab PO DAILY 12/23/17 [ History] Warfarin [Coumadin] 5 mg PO DAILY 12/23/17 [History] 3 Allergy/AdvReac Type Severity Reaction Status Date / Time No Known Allergies Allergy Verified 12/23/17 12:18 Review of Systems All Systems: reviewed and no additional remarkable complaints except as stated Exam - Vital Signs Vital signs: Initial Vital Signs Temp Pulse Resp BP Pulse Ox 98.1 F 78 16 135/91 98 12/22/17 21:26 12/22/17 21:26 12/22/17 21:26 12/22/17 21:26 12/22/17 21:26 - Constitutional Constitutional: well developed, well nourished, no acute distress, average body habitus - HEENT HEENT: Normocephaly, Mucus Membranes Moist - Neck Neck exam: full ROM - Lungs Respiratory exam: CTAB - Cardiovascular Cardiovascular exam: RRR, +S1, +S2 - Breasts Breast: bilateral: normal - Abdomen Abdomen: Present: bowel sounds normal - Extremities Extremities exam: normal inspection, radial pulses palpable and symmetrical - Vulva Vulva: bilateral: normal - Vagina Vagina: Present: normal moisture, discharge (lochia) - Cervix Cervix: Present: discharge (lochia) - Uterus Uterus exam: Present: enlarged, tender - Adnexa Adnexa: bilateral: normal - Anus/Rectum Anus/Rectum: Present: normal perianal skin Results Result Diagrams: 12/23/17 22:45 12/23/17 05:21 Abnormal lab results RBC 3.66 M/mcL (3.82-4.97) L 12/23/17 05:21 Hgb 11.0 g/dL (11.5-15.4) L 12/23/17 22:45 Hct 32.5 % (35.3-44.9) L 12/23/17 22:45 MPV 9.0 fL (9.4-12.4) L 12/23/17 05:21 PT 14.4 Seconds (9.4-12.1) H 12/23/17 05:21 APTT 59.9 Seconds (26.0-36.0) H 12/23/17 12:03 Chloride 109 mEq/L (98-107) H 12/23/17 05:21 Creatinine 0.40 mg/dL (0.60-1.20) L 12/23/17 05:21 Calcium 8.4 mg/dL (8.6-10.3) L 12/23/17 05:21 AST 11 Units/L (13-39) L 12/23/17 05:21 Alkaline Phosphatase 106 Units/L (34-104) H 12/23/17 05:21 Serum Total Protein 5.5 g/dL (6.4-8.9) L 12/23/17 05:21 Albumin 3.0 g/dL (3.5-5.7) L 12/23/17 05:21 All other labs normal. Consult Discharge Plan - Plan Referrals: Tayla Kaur MD [Primary Care Provider] -
[2017-12-24 00:46] LABS: Bilirubin,Urine Negative (Negative); Blood,Urine Large (Negative); Clarity,Urine Cloudy (Clear); Color,Urine Yellow (Yellow); Glucose,Urine (UA) Normal (Normal); Ketones,Urine Negative (Negative); Leukocyte Esterase,Urine Small (Negative); Nitrite,Urine Negative (Negative); Protein,Urine Negative (Neg-Trace); Specific Gravity,Urine 1.021 (1.010-1.025); Urobilinogen,Urine Normal (Normal)
[2017-12-24 00:48] LABS: Hyaline Casts,Urine None Seen per lpf (None-Few); Squamous Epithelial Cell,Urine Many per lpf (None-Few); WBC,Urine 15-30 per hpf (0-3)
[2017-12-24 00:57] LABS: Bacteria,Urine Few per hpf (None-Few); Mucus,Urine Moderate (Few); RBC,Urine 50-100 per hpf (0-3); Yeast,Urine Few per hpf (None Seen)
[2017-12-24 02:14] LABS: Hematocrit 31.9 % (35.3-44.9); Hemoglobin 10.9 g/dL (11.5-15.4); Mean Corpuscular HGB Conc 34.2 g/dL (31.6-35.5); Mean Corpuscular Hemoglobin 29.8 pg (28.0-33.3); Mean Corpuscular Volume 87.2 fL (83.0-100.0); Mean Platelet Volume 9.4 fL (9.4-12.4); Platelet Count 216 K/mcL (140-400); Red Blood Count 3.66 M/mcL (3.82-4.97); Red Cell Distribution Width 13.3 % (11.5-14.5)
[2017-12-24 02:21] LABS: INR 1.4; Prothrombin Time 15.7 Seconds (9.4-12.1)
--- NOTE | 2017-12-24 06:56 | Electrocardiograph Report ---
[place] [id number] Test Date: 2017-12-23 Pat Name: Maura Salguero Department: 114 Room: [facility] Gender: F Livestock Handler: JEAN PIERRE : 1980 Requested By: Renyold Pang Order Number: [id number] Reading MD: Kamran Stanton Measurements Intervals [place] Rate: 56 P: 53 NM: 148 QRS: 41 QRSD: 87 T: 34 QT: 388 QTc: 379 Interpretive Statements SINUS BRADYCARDIA POSSIBLE RIGHT VENTRICULAR CONDUCTION DELAY Electronically Signed On 12-24-2017 6:54:47 EDT by Kamran Stanton
--- NOTE | 2017-12-24 08:14 | Event Note ---
Date of Encounter: 12/24/17 Time of Encounter: 08:14 S: Patient reports pain continues this morning. O: Short CBC 12/24/17 12/23/17 Range/Units 02:00 22:45 WBC 9.3 (4.3-11.1) K/mcL Hgb 10.9 L 11.0 L (11.5-15.4) g/dL Hct 31.9 L 32.5 L (35.3-44.9) % Plt Count 216 (140-400) K/mcL Urine 12/24/17 Range/Units 00:35 Urine Color Yellow (Yellow) Urine Clarity Cloudy A (Clear) Urine pH 6.0 (5.0-8.0) pH Units Ur Specific [place] 1.021 (1.010-1.025) Urine Protein Negative (Neg-Trace) mg/dL Urine Glucose (UA) Normal (Normal) mg/dL No change in physical assessment from last night A: day 7 Breast feeding status of mother P: OB signing off on consult. At this time there is no indication that the current diagnoses are related to the patient's status Follow-up with Dr. Wise, her OB, as scheduled
[2017-12-24] MEDS ORDERED: Prenatal Vit/FA 1 EACH TABLET PO SCH (09:00)
[2017-12-24] MEDS: Acetaminophen 325 MG TABLET PO PRN (09:52)
--- NOTE | 2017-12-24 13:06 | Oncology Inp Progress Note ---
Date of Encounter: 12/24/17 Time of Encounter: 12:00 (1) DVT (deep venous thrombosis) Current Visit: Yes Status: Acute Assessment and plan: Provoked- patient is with recent uncomplicated vaginal delivery about 1 week ago. No thrombophilia workup warranted. Agree with heparin or lovenox bridge to coumadin. She will need short term anticoagulation (4 months) given that this is the patients first provoked thrombotic event. If INR is not therapeutic at time for discharge would recommend lovenox bridge dosing at 1 mg/kg/dose every 12 hours. Will consult social and human services assistant for coumadin clinic referral planning for discharge. She is planned for thrombectomy today with Dr. Alvarez. Would recommend against placing IVC filter at this time, Dr. Black to discuss further with Dr. Alvarez. Will arrange for follow up with Dr. Black following her discharge. Otherwise, hematology will sign off at this time. Please refer to Dr. Black's attestation below for additional details. Qualifiers: DVT location: lower extremity Affected thrombotic vein of extremity: iliac Chronicity: acute Laterality: left Qualified Code(s): I82.422 - Acute embolism and thrombosis of left iliac vein Oncology: Subj Interval history: Ms. Salguero is resting in bed. Her mother and son at bedside. She continues to report pain, heaviness and edema to LLE which has made ambulation about in her room quite difficult. She reports vascular surgery was previously in room and discussed plan for thrombectomy today. She denies SOB or chest pain. NO other new symptoms. - Constitutional Vitals: Vital Signs Temp Pulse Resp BP Pulse Ox 12/24/17 12:22 97.9 F 57 16 117/80 98 12/24/17 07:10 98.7 F 71 16 124/81 96 12/24/17 02:43 98.7 F 61 16 115/76 96 12/24/17 00:38 98.9 F 57 16 118/78 97 12/23/17 19:32 98.3 F 98 16 117/78 98 12/23/17 16:13 98.3 F 57 17 100/68 95 Intake and Output 12/23/17 12/24/17 12/24/17 23:59 07:59 15:59 Intake Total 940 / 940 0 / 0 Balance 940 / 940 0 / 0 Intake: IV Fluids 500 / 500 Heparin 25,000 UNIT/500 ML D5W 500 / 500 25,000 unit In 500 ml @ 14 UNIT /KG/HR 19.051 mls/hr IVC .Q24H QUINTIN Rx#:[id number] Oral 440 / 440 0 / 0 Other: Meal Dinner Percent of Meal Consumed 75% # Voids 1 1 General appearance: cooperative, no acute distress, no febrile - Head Head exam: Present: atraumatic - ENT ENT exam: Present: mucous membranes moist - Respiratory Respiratory exam: Present: CTAB. Absent: respiratory distress - Cardiovascular Cardiovascular exam: Present: RRR, +S1, +S2 - GI/Abdominal GI/Abdominal exam: Present: normal bowel sounds, soft. Absent: tenderness - Extremities Exam Additional comments: edema to LLE +1-2 non pitting, dorsalis pedis pulses 2+ bilaterally, tenderness to left groin area - Neurological Exam Neurological exam: Present: alert, oriented X3, no focal deficits, strengths equal and symetr throughout - Psychiatric Psychiatric exam: Present: normal affect, normal mood - Skin Skin exam: Present: dry, intact, normal color, warm Oncology: Obj Data - Labs CBC & Chem 7: 12/24/17 02:00 12/23/17 05:21 - ABG Interpretation ABG results: PT/INR, D-dimer PT 15.7 Seconds (9.4-12.1) H 12/24/17 02:00 Consult Discharge Plan - Plan Referrals: Tayla Kaur MD [Primary Care Provider] -
--- NOTE | 2017-12-24 16:54 | Anesthesia Evaluation PreOp ---
Date of Encounter: 12/24/17 Time of Encounter: 16:49 - Past History Planned Operation: Venous Mechanical Thrombectomy, IVC Filter Cardiac History: Denies any Significant Hx Pulmonary History: Denies Any Significant HX SKIP PIT WORKER History: Denies Any Significant HX Other Medical History: Denies Any Significant HX, Bleeding (LLE DVT diagnosed Ext Iliac Vein/Common Femoral Vein - Heparin gtt started) : No (Post- Day # 6. Lactating mother) Alcohol Use: none Drug use: none Medications and Allergies Enoxaparin [Lovenox] 70 mg SQ Q12HR 12/23/17 [History] Pnv No.122/Iron/Folic Acid [ Multi Tablet] 1 tab PO DAILY 12/23/17 [ History] Warfarin [Coumadin] 5 mg PO DAILY 12/23/17 [History] 3 Allergy/AdvReac Type Severity Reaction Status Date / Time No Known Allergies Allergy Verified 12/23/17 12:18 - Meds/Allergy Pre-op Review Medications Reviewed: Yes Allergies Reviewed: Yes Beta Blockers on Current Med List: No Anesthesia Results - Labs 12/24/17 02:00 12/23/17 05:21 Laboratory Results Impressions Abdomen/Pelvis CT 12/23/17 02:42 IMPRESSION: Thrombi are identified in the left common femoral vein as well as the left common iliac vein with extension into both the left external and internal iliac veins. There is no definite evidence for extension to the inferior vena cava. D/ / Gato Montesinos MD / Gato Montesinos MD Interpreting Provider: Gato Montesinos MD Anesthesia Exam Vital Signs Temp Pulse Resp BP Pulse Ox 12/24/17 12:22 97.9 F 57 16 117/80 98 12/24/17 07:10 98.7 F 71 16 124/81 96 12/24/17 02:43 98.7 F 61 16 115/76 96 12/24/17 00:38 98.9 F 57 16 118/78 97 12/23/17 19:32 98.3 F 98 16 117/78 98 Intake and Output 12/24/17 12/24/17 12/24/17 07:59 15:59 23:59 Intake Total 0 / 0 0 / 0 Balance 0 / 0 0 / 0 Intake: IV Fluids 0 / 0 Heparin 25,000 UNIT/500 ML D5W 0 / 0 25,000 unit In 500 ml @ 14 UNIT /KG/HR 19.051 mls/hr IVC .Q24H QUINTIN Rx#:[id number] Oral 0 / 0 Other: # Voids 1 Height: 5'9" Weight: 155# bmi = 23 NPO (# of Hours): 1100AM JUICE, COFFEE - HEENT Pupil (Motor): Pupils equal, EOMI Mallampati: II Teeth: Normal Oral Opening: Greater than 3 - SKIP PIT WORKER LOC: Oriented SKIP PIT WORKER Motor: Normal RUE, Normal LUE, Normal RLE, Normal LLE, Normal Face SKIP PIT WORKER Sensory: Normal: RUE, LUE, RLE, LLE, Face - Cardiac Rhythm: Regular Murmur: None - Pulmonary Breath Sounds: bilateral Clear Respiratory Effort: Symmetrical Anesthesia Assess/Plan ASA Score: 2 Modified Sudha Scale for Level of Consciousness: Cooperative, oriented, and tranquil Anesthetic Plan: General Monitoring Plan: Standard Monitors Recovery Plan: PACU Anes Supervising Prov Stmt: Pt seen/evaluated, R&B discussed, questions answered and consent obtained. Jorge Luis Denis MD
--- NOTE | 2017-12-24 17:14 | Vascular/Endovas Progress Note ---
Date of Encounter: 12/24/17 Time of Encounter: 11:00 - Assessment and plan (1) DVT (deep venous thrombosis) Current Visit: Yes Status: Acute The patient has extensive left lower extremity deep vein thrombosis with signs of emergent phlegmasia. She has significant edema was significant pain and increased tenderness. A left lower extremity venous mechanical thrombectomy is recommended due to her progressive symptoms. The risks benefits and alternatives were discussed and all questions were answered. Given the extent for DVT she may require an inferior vena cava filter. The plan of care was discussed the patient and her family as well as with hematology and the hospitalist group. Qualifiers: DVT location: lower extremity Affected thrombotic vein of extremity: iliac Chronicity: acute Laterality: left Qualified Code(s): I82.422 - Acute embolism and thrombosis of left iliac vein - Subjective Interval history: The patient reports no significant improvement in her left lower extremity symptoms overnight. She reports continued pain and swelling of the left lower extremity. She reports that is difficult well. She denies any chest pain or shortness of breath. Vital Signs, Last 4 Hours Pulse Resp BP Pulse Ox 12/24/17 16:58 76 16 118/75 96 - Physical Examination General: Present: Conversant, No Apparent Distress HEENT: Present: Pupils equal Cardiac: Present: Reg Rate and Rhythm Lungs: Present: Normal Breath Sounds, No Wheeze, Rales, Rhonchi Neuro: Present: Alert and responsive, No focal deficits noted, Motor nerves grossly intact, Sensory nerves grossly intact Vascular: Present: Normal capillary refill, Pulse, normal, Edema (2+ edema of the left lower extremity), Color/Temperature (Left foot warm). Absent: Cyanosis Abdomen: Present: Soft, Non-tender Skin: Present: No rashes noted on visualized skin - VTE Reasons for not Prescribing Prophylaxis: Not indicated-Anticoagulated or INR therapeutic Results 12/24/17 02:00 12/23/17 05:21 Lab Results, Last 24 hours 12/23/17 12/24/17 12/24/17 22:45 02:00 02:00 WBC 9.3 Hgb 11.0 L 10.9 L Hct 32.5 L 31.9 L Plt Count 216 INR 1.4 APTT 12/24/17 12:22 WBC Hgb Hct Plt Count INR APTT 52.4 H Consult Discharge Plan - Plan Referrals: Tayla Kaur MD [Primary Care Provider] -
--- NOTE | 2017-12-24 17:16 | Internal Med Progress Note ---
Date of Encounter: 12/24/17 Time of Encounter: 12:30 - Assessment and plan (1) DVT (deep venous thrombosis) Current Visit: Yes Status: Acute Assessment and plan: Mostly due to post Vasuclar surgery on board..Dr. Alvarez scheuled her for thrombectomy and decompression today Cont Heparin gtt does need 4-6 months anti coag Will d/c home in AM with Coumadin to bridge with Lovenox Reviewed CT of abd and Pelvis.. Thrombi in the left common FV, common Iliac vein. Qualifiers: DVT location: lower extremity Affected thrombotic vein of extremity: iliac Chronicity: acute Laterality: left Qualified Code(s): I82.422 - Acute embolism and thrombosis of left iliac vein (2) Lactating mother Current Visit: Yes Status: Acute Assessment and plan: Breast feeding mother heparin and coumadin are safe anticoagulants. - Time Spent With Patient Total time spent is greater than 50% in coordination of care (as documented) at patient's floor/unit and/or counseling patient: - Subjective Interval history: Ms. Salguero is a 37 year old female who is 6 days from an uncomplicated spontaneous vaginal delivery at [facility] in [place] who was dx with DVT in the "left femoral vein, left common iliac vein with extension to the left internal and external iliac veins " 2 days ago in the ER and sent her home with Coumadin , bridging with Lovenox injections. However her Left leg swelling and pain got worsened so she came back to ER. Pt was admitted in the hospital and started her on Heparin gtt. Pt states she did not notice much difference in her pain and swelling. However her pain is tolerable with current pain meds. Denied any CP / SOB. Denied any fever / chills. - Constitutional Vitals: Temp Pulse Resp BP Pulse Ox 97.9 F 76 16 118/75 96 12/24/17 12:22 12/24/17 16:58 12/24/17 16:58 12/24/17 16:58 12/24/17 16:58 General appearance: Present: cooperative, A&O X 3, pleasant, no acute distress, answers questions appropriately - Head Head exam: Present: atraumatic, normal inspection - Neck Neck exam general surgery: Present: supple - Respiratory Respiratory exam: Present: decreased breath sounds. Absent: rales, respiratory distress, rhonchi, wheezes - Cardiovascular Cardiovascular exam: Present: RRR, +S1, +S2. Absent: tachycardia - GI/Abdominal GI/Abdominal exam: Present: normal bowel sounds, soft. Absent: rebound, rigid, tenderness - Extremities Exam Extremities exam: Present: pedal edema (Left leg), tenderness (Left thigh and left hip region. ). Absent: calf tenderness - Back Exam Back exam: Absent: CVA tenderness (L), CVA tenderness (R) - Psychiatric Psychiatric exam: Present: normal affect, normal mood - Skin Skin exam: Absent: rash Internal Medicine: Result - Labs CBC & Chem 7: 12/24/17 02:00 12/23/17 05:21 Labs: Short CBC 12/23/17 12/24/17 Range/Units 22:45 02:00 WBC 9.3 (4.3-11.1) K/mcL Hgb 11.0 L 10.9 L (11.5-15.4) g/dL Hct 32.5 L 31.9 L (35.3-44.9) % Plt Count 216 (140-400) K/mcL Urine 12/24/17 Range/Units 00:35 Urine Color Yellow (Yellow) Urine Clarity Cloudy A (Clear) Urine pH 6.0 (5.0-8.0) pH Units Ur Specific [place] 1.021 (1.010-1.025) Urine Protein Negative (Neg-Trace) mg/dL Urine Glucose (UA) Normal (Normal) mg/dL - ABG Interpretation ABG results: PT/INR, D-dimer PT 15.7 Seconds (9.4-12.1) H 12/24/17 02:00 - VTE Reasons for not Prescribing Prophylaxis: Not indicated-Anticoagulated or INR therapeutic Consult Discharge Plan - Plan Referrals: Tayla Kaur MD [Primary Care Provider] -
[2017-12-24] MEDS ORDERED: *HR* Warfarin 7.5 MG TABLET PO ONE ×2 (18:00→22:29)
[2017-12-24] MEDS ORDERED: *HR* Alteplase (Cathflo) 2 MG VIAL IVP ONE ×2 (18:01→22:29)
[2017-12-24] MEDS ORDERED: Bupivacaine-MPF 0.25% 10 ML VIAL ONE (18:09)
[2017-12-24] MEDS ORDERED: Heparin 1,000 UNITS/500 mL 500 ML ONE ×3 (18:10→21:21)
[2017-12-24] MEDS ORDERED: *HR* Midazolam HCl 2 MG/2 ML VIAL ONE (18:42)
[2017-12-24] MEDS ORDERED: *HR* FentaNYL (PF) 100 MCG/2 ML VIAL ONE (18:42)
[2017-12-24] MEDS ORDERED: *HR* Propofol 200 MG/20 ML VIAL IVP ONE (18:43)
[2017-12-24] MEDS ORDERED: *HR* Succinylcholine 200 MG/10 ML VIAL IVP ONE (18:44)
[2017-12-24] MEDS ORDERED: Lidocaine -MPF 2% 2 ML VIAL ONE (18:44)
[2017-12-24] MEDS ORDERED: Lidocaine -MPF 4% 5 ML AMPUL ONE (18:46)
[2017-12-24] MEDS ORDERED: CeFAZolin Syr 2,000MG/20 ML 2,000 MG/20 ML SYRINGE IVPB ONE ×2 (18:52→22:29)
[2017-12-24] MEDS ORDERED: Alteplase (Cathflo) 10 MG in 0.9 % Sodium Chloride 100 ML IVPB ONE ×2 (19:00→22:29)
[2017-12-24] MEDS ORDERED: Isovue-300 50 ML VIAL IVP ONE ×3 (19:55→21:31)
[2017-12-24] MEDS ORDERED: *HR* Morphine 10 MG/ML VIAL ONE (20:22)
[2017-12-24] MEDS ORDERED: Dexamethasone 4 MG/ML VIAL ONE (20:49)
[2017-12-24] MEDS ORDERED: Ondansetron 4 MG/2 ML VIAL ONE (20:49)
[2017-12-24] MEDS ORDERED: *HR* OxyCODONE Immed Rel 5 MG TABLET PO PRN (20:51)
[2017-12-24] MEDS ORDERED: Acetaminophen IV 1,000 MG/100 ML INFUS..BTL IVPB ONE (20:51)
[2017-12-24] MEDS ORDERED: *HR* FentaNYL (PF) 100 MCG/2 ML VIAL IVP PRN (20:51)
[2017-12-24] MEDS ORDERED: Ringers Solution, Lactated 1,000 ML IVC SCH (21:00)
[2017-12-24] MEDS ORDERED: Ketorolac 30 MG/ML VIAL ONE (21:42)
[2017-12-24] MEDS ORDERED: *HR* Meperidine 25 MG/ML SYRINGE ONE (21:51)
--- NOTE | 2017-12-24 22:06 | Operative Note ---
Date of procedure: 12/24/17 Pre-op diagnosis: Deep Vein thrombosis Post-op diagnosis: same Procedure: 1. Left lower extremity venogram via left popliteal vein with 6 mosotho sheath. 2. Left lower extremity venous mechanical thrombectomy with Solent Omni Angiojet catheter. 3. Left common iliac vein angioplasty with 10 x 40mm balloon. Complications: None Anesthesia: RAA Surgeon: Delfino Alvarez Was there an auction assistant present: No Estimated blood loss (cc): 10 Specimen: None Disposition: PACU Procedure in Detail: Indications: The patient is a 37-year-old female who recently had her third child. The patient presented to the emergency room with left leg pain and swelling without evidence deep venous thrombosis. She was treated with Lovenox and Coumadin. However symptoms progress. She returned to the emergency room and was admitted. She is known to have an extensive left iliac and femoral DVT. She remains symptomatic and mechanical thrombectomy was recommended for symptomatically. Operative procedure: The patient was identified in the preoperative area. The risks, benefits and alternatives of the procedure were discussed and all questions were answered. The patient was taken to the operating room and after induction of general endotracheal anesthesia he was placed on the table in the prone position. He was then prepped and draped sterilely in the usual fashion. Under ultrasound guidance. Percutaneous access of the left popliteal vein was performed with a large-bore needle. A Pandora.TV wire was advanced into the superficial femoral vein under fluoroscopic guidance. The needle was exchanged for a 6-Swiss sheath. A [place]enstein catheter was advanced over the wire. Wire was advanced into the level of the inferior vena cava. The catheter was removed and an AngioJet Solent Omni catheter was advanced over the wire the catheter was placed in palpable pulse mode and 10 mg of alteplase and 100 mL of solution was infused into the thrombus. The alteplase was allowed to work And then venous mechanical thrombectomy was performed with the catheter. Venography revealed partial resolution of the thrombus with significant improvement in flow within the superficial femoral common femoral and iliac veins. Additional mechanical thrombectomy was performed with serial imaging that resulted in significant improvement of the resolution of the thrombus. A high-grade stenosis persisted at the iliac confluence on the left. Therefore a 10 x 40 mm balloon was used to perform angioplasty at this level. Multiple inflations were required. Upon completion of the angioplasty the lumen was noted to be normal in caliber with significant improvement in flow. The catheter wire and sheath were removed. Direct pressure was held to aid in hemostasis. A V-pad was also used to aid in hemostasis. A sterile dressing was then applied followed by compressive Brian wraps from the foot to the proximal thigh. The patient was extubated to recovery room in stable condition.
[2017-12-24] MEDS ORDERED: Acetaminophen 325 MG TABLET PO PRN (22:29)
[2017-12-24] MEDS ORDERED: *HR* Heparin 5,000 UNIT/ML VIAL IVP PRN ×2 (22:29)
[2017-12-24] MEDS ORDERED: Warfarin perPT PO PRN (22:29)
[2017-12-24] MEDS ORDERED: Heparin 25,000 UNIT/500 ML D5W 25,000 UNIT/500 ML BAG IVC SCH (22:29)
[2017-12-24] MEDS ORDERED: Naloxone 0.4 MG/ML INJ IVP PRN (22:29)
--- NOTE | 2017-12-25 00:11 | Anesthesia Evaluation Post Op ---
Date of Encounter: 12/25/17 Time of Encounter: 22:25 Notes: Patient's vital signs have been reviewed. Patient is stable postoperatively and has adequately recovered from anesthesia. Patient is determined to have stable airway patency and respiratory function including respiratory rate and oxygen saturation. Patient has a stable heart rate, blood pressure and adequate hydration. Patients mental status is acceptable. Patients temperature is appropriate. Pain and nausea are adequately controlled. - Discharge PostOp Status: Transfer Patient to floor
[2017-12-25] MEDS ORDERED: Ondansetron 4 MG/2 ML VIAL IVP ONE (01:50)
[2017-12-25 05:43] LABS: INR 2.5; Prothrombin Time 27.1 Seconds (9.4-12.1)
[2017-12-25 06:03] LABS: Activated Partial Thrombo Time 122.7 Seconds (26.0-36.0); Heparin anti-factor XA UFH 0.33 IU/mL (0.30-0.70)
[2017-12-25 07:11] VITALS: BP 118/76
--- NOTE | 2017-12-25 08:50 | Discharge Summary ---
- NOTES TO OUTPATIENT PROVIDER Notes to Outpatient Provider: f/u with PCP in 3-5 days. f/u with Vascular surgery Dr. Alvarez 2-4 weeks. Please take coumadin 2.5mg PO today evening and go for INR at Coumadin clinic to discuss about further dosing Orders not resulted at time of discharge: Pending orders 12/24/17 20:30 XR fluoroscopy <1 hr [XR] Routine XR pelvis AP view [XR] Routine 12/25/17 13:00 PTT [Activated Partial Thrombo Time] [COAG] Stat Date of Encounter: 12/25/17 Time of Encounter: 08:46 - Discharge Diagnosis (1) DVT (deep venous thrombosis) Priority: Primary Status: Acute Qualifiers: DVT location: lower extremity Affected thrombotic vein of extremity: iliac Chronicity: acute Laterality: left Qualified Code(s): I82.422 - Acute embolism and thrombosis of left iliac vein (2) Lactating mother Priority: Secondary Status: Acute Hospital course: Ms. Salguero is a 37 year old female who is 6 days from an uncomplicated spontaneous vaginal delivery at [facility] in [place] who was dx with DVT in the "left femoral vein, left common iliac vein with extension to the left internal and external iliac veins " 2 days ago in the ER and sent her home with Coumadin , bridging with Lovenox injections. However her Left leg swelling and pain got worsened so she came back to ER. Pt was admitted in the hospital and started her on Heparin gtt. She was evaluated by vascular surgery Dr. Alvarez and did go for 1. Left lower extremity venogram via left popliteal vein with 6 fijian sheath. 2. Left lower extremity venous mechanical thrombectomy with Solent Omni Angiojet catheter. 3. Left common iliac vein angioplasty with 10 x 40mm balloon on 12/24/17. Today pt states her pain, edema and erythema improved. Her INR is @ 2.5 today. So d/c home in stable condition today. Also talked to pt's PCP and updated her about current care. - Time Spent with Patient Total time spent providing and/or coordinating discharge services: - Discharge Medications Home Medications: Pnv No.122/Iron/Folic Acid [ Multi Tablet] 1 tab PO DAILY 12/23/17 [ History] Warfarin [Coumadin] 5 mg PO DAILY #0 05/16/18 [Rx] Allergies/Adverse Reactions: 3 Allergy/AdvReac Type Severity Reaction Status Date / Time No Known Allergies Allergy Verified 12/23/17 12:18 Date of admission: 12/23/17 02:32 Primary care physician: Tayla Kaur Consults: 12/23/17 05:37 Consult to Vascular Surgery [CONS] Routine Consulting Provider: Vascular Surgery Shiela Reason for Consult: Proximal DVT; ? need for IVC filter Call Completed: Germaine 12/23/17 17:44 Consult to Quality Assurance Monitor Final [CONS] Routine Reason for SW Consult: Good evening, Can you please assist with referral to coumadin clinic for this patient? Thank you! Winter 12/23/17 23:00 Consult to METAL COATER OPERATOR [CONS] Routine Consulting Provider: INLETTER Shiela Reason for Consult: Patient is status post- 6 days w/vaginal and uneventful and delivery. DVT found on imaging in ED and pt. placed on Coumadin. Hgb trending down, so H/H Q6HR ordered. Ua w/reflex micro and culture ordered as well. Concern is for post- status and underlying issue. Call Completed: Yes - Constitutional Vitals: Temp Pulse Resp BP Pulse Ox 97.9 F 53 16 118/76 98 12/25/17 06:40 12/25/17 06:40 12/25/17 06:40 12/25/17 06:40 12/25/17 06:40 General appearance: Present: cooperative, A&O X 3, pleasant, no acute distress, answers questions appropriately - Head Head exam: Present: atraumatic, normal inspection - Neck Neck exam general surgery: Present: supple - Respiratory Respiratory exam: Present: decreased breath sounds. Absent: rales, respiratory distress, rhonchi, wheezes - Cardiovascular Cardiovascular exam: Present: RRR, +S1, +S2. Absent: tachycardia - GI/Abdominal GI/Abdominal exam: Present: soft - Extremities Exam Extremities exam: Present: pedal edema (Left lower leg). Absent: calf tenderness, tenderness Additional comments: Improved erythema, swelling and tenderness in Left leg noticed - Back Exam Back exam: Absent: CVA tenderness (L), CVA tenderness (R) - Neurological Exam Neurological exam: Present: alert, oriented X3 - Psychiatric Psychiatric exam: Present: normal affect, normal mood - Patient Status Disposition: Home, Self-Care Condition: Good Overall status at discharge: patient is back to baseline - Discharge Instructions Follow Up With: Tayla Kaur MD [Primary Care Provider] - Delfino Alvarez MD [Partnered Physician] - - Diet and Activity Activity: increase activity as tolerated Diet: advance to your usual diet - VTE Reasons for not Prescribing Prophylaxis: Not indicated-Anticoagulated or INR therapeutic Documentation of Mechanical Device: Intermittent pneumatic compression device
[2017-12-25] MEDS ORDERED: Prenatal Vit/FA 1 EACH TABLET PO SCH (09:00)
--- NOTE | 2017-12-25 09:56 | Vascular/Endovas Progress Note ---
Date of Encounter: 12/25/17 Time of Encounter: 08:40 - Assessment and plan (1) DVT (deep venous thrombosis) Current Visit: Yes Status: Acute The patient is postoperative day #1 after left lower extremity venous mechanical thrombectomy and left iliac vein angioplasty. She reports that she is feeling much better today. She has decreased edema in the left lower extremity. Her INR is therapeutic. She may discontinue her heparin at this time he began discharged home. Her goal INR is 2.0-3.0. She was given a prescription for a 20-30 mmHg compression stocking and advised to use assigning daily. She may follow-up in vascular clinic in 1 month for further evaluation. Recommend anticoagulation for at least 3 months prior to repeat venous duplex. She may also benefit from follow-up with hematology regarding a hypercoagulable workup. Qualifiers: DVT location: lower extremity Affected thrombotic vein of extremity: iliac Chronicity: acute Laterality: left Qualified Code(s): I82.422 - Acute embolism and thrombosis of left iliac vein (2) anemia Current Visit: Yes Status: Chronic She is hemodynamically stable without evidence of ongoing blood loss. Her hemoglobin is stable postoperatively. - Subjective Interval history: The patient reports significant improvement in her symptoms overnight. She reports that the thrombectomy has made her legs feel much better. She denies chest pain shortness breath. Vital Signs, Last 4 Hours Temp Pulse Resp BP Pulse Ox 12/25/17 06:40 97.9 F 53 16 118/76 98 - Physical Examination General: Present: Conversant Cardiac: Present: Reg Rate and Rhythm Lungs: Present: Normal Breath Sounds Neuro: Present: Alert and responsive, No focal deficits noted Vascular: Present: Normal capillary refill, Edema (Trace left lower extremity edema), Surgical incisions (No hematoma). Absent: Cyanosis Abdomen: Present: Soft Skin: Present: No rashes noted on visualized skin - VTE Reasons for not Prescribing Prophylaxis: Not indicated-Anticoagulated or INR therapeutic Documentation of Mechanical Device: Intermittent pneumatic compression device Results 12/24/17 02:00 12/23/17 05:21 Lab Results, Last 24 hours 12/24/17 12/25/17 12/25/17 12:22 05:03 05:03 INR 2.5 D APTT 52.4 H 122.7 H* D Consult Discharge Plan - Plan Instructions: Warfarin (By mouth), Pulmonary Embolism (DC), Deep Venous Thrombosis (DC), Vitamin K in Foods (DC) Additional Instructions: FOLLOW UP WITH COUMADIN CLINIC SCHEDULED ON 12/30/17 AT 4:30 PLEASE BRING YOUR BOTTLE OF COUMADIN WITH YOU WHEN YOU GO TO THE CLINIC PLEASE BRING A LIST OF YOUR CURRENT MEDICATIONS TO THE CLINIC APPOINTMENT [facility] COUMADIN CLINIC NUMBER IS [phone] FOR ANY QUESTIONS OR CONCERNS PLEASE FOLLOW UP WITH YOUR PRIMARY DOCTOR IN 3-5 DAYS PLEASE FOLLOW UP WITH DR. GOODE SCHEDULED GET YOUR LABS DRAWN TOMORROW AND SEND RESULTS TO YOUR PRIMARY DOCTOR Referrals: Delfino Goode MD [Partnered Physician] - 01/28/18 3:40 pm Tayla Kaur MD [Primary Care Provider] -
== END 2017-12-25 10:56 | disposition home or self-care (01) | DRG 769 ==
LOC: EMEROO 21:16 → 3NENU 21:16 → SUATTDRO 12-23 02:32
PROVIDERS: ADMIT Pediatrics; ATTEND Family Medicine

== ENCOUNTER 2017-12-29 10:09 | Inpatient (IN) ==
--- NOTE | 2017-12-29 10:41 | Emergency Department Note ---
Disposition Clinical Impression: Deep vein thrombosis of lower extremity Qualifiers: Affected thrombotic vein of extremity: iliac Chronicity: acute Laterality: left Qualified Code(s): I82.422 - Acute embolism and thrombosis of left iliac vein Disposition: Admitted As Inpatient Condition: Good General Adult HPI - General Chief complaint: ED Extremity Problem,Nontraumatic Stated complaint: DVT r/o left leg Time Seen by Provider: 12/29/17 10:19 Source: patient Limitations: no limitations - History of Present Illness Pain Scale: 8 - Related Data Home Medications Medication Instructions Recorded Confirmed Warfarin [Coumadin] 1 mg PO Q48H 12/29/17 12/29/17 Warfarin [Coumadin] 2.5 mg PO Q48H 12/29/17 12/29/17 Allergies Allergy/AdvReac Type Severity Reaction Status Date / Time No Known Allergies Allergy Verified 12/29/17 10:15 Past Medical History - Past Medical History Medical history: Reports: no medical history Surgical history: Reports: no surgical history Psychiatric history: Reports: no psych history - Social History Smoking Status: Never smoker Smokeless Tobacco Status: No Alcohol use: Reports: none Drug use: Reports: none Physical Exam - General Limitations: no limitations General appearance: alert, in no apparent distress Course Vital Signs Temperature 97.4 F L 12/29/17 10:15 Pulse Rate 80 12/29/17 10:15 Respiratory Rate 20 12/29/17 10:15 Blood Pressure 114/76 12/29/17 10:15 O2 Sat by Pulse Oximetry 100 12/29/17 10:15 Temperature 99.5 F 12/29/17 18:32 Pulse Rate 82 12/29/17 18:32 Respiratory Rate 16 12/29/17 18:32 Blood Pressure 121/73 12/29/17 18:32 O2 Sat by Pulse Oximetry 96 12/29/17 18:32 Oxygen Delivery Oxygen Delivery Room Air Medical Decision Making - Lab Data Result diagrams: 12/29/17 11:10 12/29/17 11:10 Lab Results 12/29/17 12/29/17 12/29/17 Range/Units 11:10 11:10 11:10 WBC 8.7 (4.3-11.1) K/mcL RBC 3.74 L (3.82-4.97) M/mcL Hgb 11.2 L (11.5-15.4) g/dL Hct 33.5 L (35.3-44.9) % MCV 89.6 (83.0-100.0) fL MCH 29.9 (28.0-33.3) pg MCHC 33.4 (31.6-35.5) g/dL RDW 13.9 (11.5-14.5) % Plt Count 246 (140-400) K/mcL MPV 9.2 L (9.4-12.4) fL PT 20.7 H D (9.4-12.1) Seconds INR 1.9 D APTT 32.1 D (26.0-36.0) Seconds Sodium (136-145) mEq/L Potassium (3.5-5.1) mEq/L Chloride (98-107) mEq/L Carbon Dioxide (23-29) mEq/L BUN (6-20) mg/dL Creatinine (0.60-1.20) mg/dL Est GFR ( Amer) (> 60) Est GFR (Non-Af Amer) (> 60) BUN/Creatinine Ratio (6-26) Glucose (70-105) mg/dL Calculated Osmolality (280-300) Calcium (8.6-10.3) mg/dL 12/29/17 Range/Units 11:10 WBC (4.3-11.1) K/mcL RBC (3.82-4.97) M/mcL Hgb (11.5-15.4) g/dL Hct (35.3-44.9) % MCV (83.0-100.0) fL MCH (28.0-33.3) pg MCHC (31.6-35.5) g/dL RDW (11.5-14.5) % Plt Count (140-400) K/mcL MPV (9.4-12.4) fL PT (9.4-12.1) Seconds INR APTT (26.0-36.0) Seconds Sodium 140 (136-145) mEq/L Potassium 3.7 (3.5-5.1) mEq/L Chloride 107 (98-107) mEq/L Carbon Dioxide 29 (23-29) mEq/L BUN 9 (6-20) mg/dL Creatinine 0.53 L (0.60-1.20) mg/dL Est GFR ( Amer) > 60 (> 60) Est GFR (Non-Af Amer) > 60 (> 60) BUN/Creatinine Ratio 17 (6-26) Glucose 70 (70-105) mg/dL Calculated Osmolality 287 (280-300) Calcium 9.2 (8.6-10.3) mg/dL Critical Care Time Critical Care Time: Yes Total Critical Care Time: 40 Attestation: Critical care performed: Time is exclusive of separately billable procedures. Time includes: direct patient care, patient reassessment, coordination of patient care, interpretation of data (laboratory data, radiology data, and respiratory data), review of patient's medical records, medical consultation and documentation of patient care. Procedures included in critical care time: Procedures excluded from critical care time: Attestation Statement - Attestation Attestation: I examined this patient and my medical decision-making was reviewed with the Resident Physician. I agree with the documented findings, disposition and treatment plan as described except to the extent set forth below. Patient to the ED with left thigh pain. Patient is 10 days and status post thrombectomy for DVT in her left thigh. She has had increasing pain and swelling and was sent in by vascular surgery. On examination she has tenderness swelling of the left mid thigh. Foot pink but cold to touch. Plan. We will check INR and ultrasound. Ultrasound shows rethrombosis of the left iliac. She started on a heparin drip. She has been discussed with Dr. Briggs hair or beauty salon assistant for vascular surgery who will see her in consult. Admitted to the hospitalist.
[2017-12-29 11:30] LABS: Hematocrit 33.5 % (35.3-44.9); Hemoglobin 11.2 g/dL (11.5-15.4); Mean Corpuscular HGB Conc 33.4 g/dL (31.6-35.5); Mean Corpuscular Hemoglobin 29.9 pg (28.0-33.3); Mean Corpuscular Volume 89.6 fL (83.0-100.0); Mean Platelet Volume 9.2 fL (9.4-12.4); Platelet Count 246 K/mcL (140-400); Red Blood Count 3.74 M/mcL (3.82-4.97); Red Cell Distribution Width 13.9 % (11.5-14.5)
[2017-12-29 11:39] LABS: INR 1.9; Prothrombin Time 20.7 Seconds (9.4-12.1)
[2017-12-29] MEDS ORDERED: *HR* Heparin 5,000 UNIT/ML VIAL IVP ONE (11:46)
[2017-12-29] MEDS ORDERED: *HR* Heparin 5,000 UNIT/ML VIAL IVP PRN (11:46)
[2017-12-29 11:49] LABS: BUN/Creatinine Ratio 17 (6-26); Blood Urea Nitrogen 9 mg/dL (6-20); Calcium 9.2 mg/dL (8.6-10.3); Carbon Dioxide 29 mEq/L (23-29); Chloride 107 mEq/L (98-107); Glucose 70 mg/dL (70-105); Osmolality,Calculated 287 (280-300); Potassium 3.7 mEq/L (3.5-5.1); Sodium 140 mEq/L (136-145); eGFR For African Americans > 60 (> 60); eGFR For Non-African Americans > 60 (> 60)
--- NOTE | 2017-12-29 12:15 | Emergency Department Note ---
Disposition Clinical Impression: Deep vein thrombosis of lower extremity Disposition: Admitted As Inpatient Condition: Good Referrals: Tayla Kaur MD [Primary Care Provider] - Forms: ED Satisfaction Letter Time of Disposition: 12:40 Extremity Problem HPI - General Chief complaint: ED Extremity Problem,Nontraumatic Stated complaint: DVT r/o left leg Time Seen by Provider: 12/29/17 10:19 Source: patient Mode of arrival: ambulatory Limitations: no limitations Nursing Notes Reviewed: Yes Vital Signs Reviewed: Yes - History of Present Illness HPI Narrative: Patient presents to the ED with the chief complaint of left thigh pain and swelling. Patient reports a recent history of extensive DVT provoked after a and delivery 10 days ago. She did receive a thrombectomy by Dr. Alvarez and was placed on Coumadin. She was discharged home and states that her pain and swelling has come back and is worse than it was before. Complains of difficulty walking with pain and tenderness to her left medial proximal thigh. No fever, chills, chest pain, shortness breath, abdominal pain, nausea, vomiting or diarrhea. No melena, hematochezia or hematuria. She spoke with the on-call vascular surgeon and they were told to come the ER. Pain Scale: 8 - Related Data Home Medications Medication Instructions Recorded Confirmed Warfarin [Coumadin] 1 mg PO Q48H 12/29/17 12/29/17 Warfarin [Coumadin] 2.5 mg PO Q48H 12/29/17 12/29/17 Allergies Allergy/AdvReac Type Severity Reaction Status Date / Time No Known Allergies Allergy Verified 12/29/17 10:15 Review of Systems: As reviewed in the HPI. All other systems reviewed are negative or normal. Past Medical History - Past Medical History Attestation: Yes The following information was validated with the patient. Source: patient Medical history: Reports: no medical history Surgical history: Reports: no surgical history Psychiatric history: Reports: no psych history - Social History Smoking Status: Never smoker Smokeless Tobacco Status: No Alcohol use: Reports: none Drug use: Reports: none Physical Exam CONSTITUTIONAL: [well appearing in no acute distress] SKIN: [Warm, dry, and intact without rash] EYES: [extraocular movements are grossly intact, clear conjunctiva] HENT: [Normocephalic, atraumatic, moist mucus membranes] NECK: [no obvious swelling, normal range of motion] PULMONARY: [normal chest rise and fall, no respiratory distress or stridor CARDIOVASCULAR: [regular rate, distal extremities are warm and well perfused] GASTROINSTESTINAL: [nondistended, non-tender] GENITOURINARY: [deferred] NEUROLOGIC: [normal speech, moves all extremities] MUSCULOSKELETAL: [no gross deformities, atraumatic, the left lower extremity is mildly swollen compared to the right. It is significantly tender over the deep venous system proximally in the thigh] PSYCHIATRIC: [normal mood and affect] - General Limitations: no limitations General appearance: alert, in no apparent distress Course Course Narrative: Patient presenting with left upper extremity pain and swelling in the setting of a recent DVT in thrombectomy. We will get a repeat ultrasound to rule out recurrent thrombus. We will also check labs and an INR - Reevaluation(s) Reevaluation #1: INR is a little subtherapeutic at 1.9. Ultrasound did show a repeat thrombosis extensively in her proximal thigh and superficial and deep veins. Spoke with vascular surgery, who agreed with heparin drip and admission hospitalist service. He will see her in consult. Dr. Briggs. I spoke with the on-call hospitalist Dr. Martinez, who was agreeable with admission. Vital Signs Temperature 97.4 F L 12/29/17 10:15 Pulse Rate 80 12/29/17 10:15 Respiratory Rate 20 12/29/17 10:15 Blood Pressure 114/76 12/29/17 10:15 O2 Sat by Pulse Oximetry 100 12/29/17 10:15 Temperature 97.4 F L 12/29/17 10:33 Pulse Rate 80 12/29/17 10:33 Respiratory Rate 20 12/29/17 10:33 Blood Pressure 114/76 12/29/17 10:33 O2 Sat by Pulse Oximetry 100 12/29/17 10:33 Oxygen Delivery Oxygen Delivery Room Air Extremity Problem, Nontraumati - Lab Data Result diagrams: 12/29/17 11:10 12/29/17 11:10 Lab Results 12/29/17 12/29/17 12/29/17 Range/Units 11:10 11:10 11:10 WBC 8.7 (4.3-11.1) K/mcL RBC 3.74 L (3.82-4.97) M/mcL Hgb 11.2 L (11.5-15.4) g/dL Hct 33.5 L (35.3-44.9) % MCV 89.6 (83.0-100.0) fL MCH 29.9 (28.0-33.3) pg MCHC 33.4 (31.6-35.5) g/dL RDW 13.9 (11.5-14.5) % Plt Count 246 (140-400) K/mcL MPV 9.2 L (9.4-12.4) fL PT 20.7 H D (9.4-12.1) Seconds INR 1.9 D APTT 32.1 D (26.0-36.0) Seconds Sodium (136-145) mEq/L Potassium (3.5-5.1) mEq/L Chloride (98-107) mEq/L Carbon Dioxide (23-29) mEq/L BUN (6-20) mg/dL Creatinine (0.60-1.20) mg/dL Est GFR ( Amer) (> 60) Est GFR (Non-Af Amer) (> 60) BUN/Creatinine Ratio (6-26) Glucose (70-105) mg/dL Calculated Osmolality (280-300) Calcium (8.6-10.3) mg/dL 12/29/17 Range/Units 11:10 WBC (4.3-11.1) K/mcL RBC (3.82-4.97) M/mcL Hgb (11.5-15.4) g/dL Hct (35.3-44.9) % MCV (83.0-100.0) fL MCH (28.0-33.3) pg MCHC (31.6-35.5) g/dL RDW (11.5-14.5) % Plt Count (140-400) K/mcL MPV (9.4-12.4) fL PT (9.4-12.1) Seconds INR APTT (26.0-36.0) Seconds Sodium 140 (136-145) mEq/L Potassium 3.7 (3.5-5.1) mEq/L Chloride 107 (98-107) mEq/L Carbon Dioxide 29 (23-29) mEq/L BUN 9 (6-20) mg/dL Creatinine 0.53 L (0.60-1.20) mg/dL Est GFR ( Amer) > 60 (> 60) Est GFR (Non-Af Amer) > 60 (> 60) BUN/Creatinine Ratio 17 (6-26) Glucose 70 (70-105) mg/dL Calculated Osmolality 287 (280-300) Calcium 9.2 (8.6-10.3) mg/dL
[2017-12-29] MEDS: Heparin 25,000 UNIT/500 ML D5W 25,000 UNIT/500 ML BAG IVC SCH (12:30)
[2017-12-29] MEDS ORDERED: Naloxone 0.4 MG/ML INJ IVP PRN (13:17)
[2017-12-29] MEDS ORDERED: Acetaminophen 325 MG TABLET PO PRN (13:17)
--- NOTE | 2017-12-29 13:43 | Internal Med History&Physical ---
Date of Encounter: 12/29/17 Time of Encounter: 13:15 Internal Medicine - H&P: HPI Chief complaint: left thigh pain Admitted From: Home Plans for Post Hospital Care: Home History of present illness: Ms. Salguero is a 37 year old female with PMH of left DVT s/p thrombectomy, G3 post who presents to the ER for worsening left thigh pain. Pt was recently discharged from the hospital on 12/25/17 after being treated for left DVT and underwent left thigh hematoma evacuation by vascular surgery. She was discharged on coumadin. Her INR was noted to be 4.4 on 12/26/17 and as per her PCP's recommendation, she held her coumadin for two days and lowered the dose. She is noted to have INR of 1.9 today and venous doppler of LLL reported an acute DVT. 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 Reports of tylenol providing some pain relief. Denies any chest pain, sob, abd pain,n/v, fever, or chills. Past Med Surg Social Fam HX - Past Medical History Medical history: no medical history Psychiatric history: no psych history - Past Surgical History Surgical History: no surgical history - Social History Smoking Status: Never smoker Smokeless Tobacco Status: No Alcohol use: none Drug use: none - Family History Mother Living Status: Still Living Father Living Status: Still Living Internal Medicine - H&P: Meds Warfarin [Coumadin] 1 mg PO Q48H 12/29/17 [History] Warfarin [Coumadin] 2.5 mg PO Q48H 12/29/17 [History] 3 Allergy/AdvReac Type Severity Reaction Status Date / Time No Known Allergies Allergy Verified 12/29/17 10:15 All Systems PM: A 10-system review of systems was performed and is negative for pertinent findings except as documented above in the HPI. - Constitutional Constitutional: as per HPI - Constitutional Vitals: Temp Pulse Resp BP Pulse Ox 97.4 F L 80 20 114/76 100 12/29/17 10:33 12/29/17 10:33 12/29/17 10:33 12/29/17 10:33 12/29/17 10:33 General appearance: Present: cooperative, A&O X 3, no acute distress, answers questions appropriately - Eye Eye exam: Present: EOMI, normal appearance - Respiratory Respiratory exam: Present: CTAB. Absent: accessory muscle use, rales, rhonchi, wheezes - Cardiovascular Cardiovascular exam: Present: RRR, +S1, +S2. Absent: diastolic murmur, gallop, rubs, systolic murmur - GI/Abdominal GI/Abdominal exam: Present: normal bowel sounds, soft, no peritoneal signs. Absent: distended, tenderness - Extremities Exam Extremities exam: Present: tenderness (left thigh tenderness ), warm, radial pulses palpable and symmetrical. Absent: calf tenderness, pedal edema - Neurological Exam Neurological exam: Present: oriented X3 - Psychiatric Psychiatric exam: Present: normal affect, normal mood Internal Med - H&P Results - Labs CBC & Chem 7: 12/29/17 11:10 12/29/17 11:10 - Assessment and plan (1) Deep vein thrombosis of lower extremity Current Visit: Yes Status: Acute Assessment and plan: Preliminary venous doppler report: ACUTE DVT and SVT of left lower extremity. Thrombus noted at high as the level of the distal iliac, noted in common femoral , GSV, and extended through SFV distally above knee Vascular surgery consulted by ER physician Hematology evaluation requested pt placed on heparin gtt tylenol prn pain Qualifiers: Affected thrombotic vein of extremity: unspecified lower extremity proximal vein Chronicity: acute Laterality: left Qualified Code(s): I82.4Y2 - Acute embolism and thrombosis of unspecified deep veins of left proximal lower extremity (2) Lactating mother Current Visit: No Status: Chronic (3) anemia Current Visit: No Status: Chronic Assessment and plan: H&H low but acceptable no acute bleeding reported at this time continue to closely monitor H&H - Time Spent With Patient Total time spent is greater than 50% in coordination of care (as documented) at patient's floor/unit and/or counseling patient:
--- NOTE | 2017-12-29 16:58 | Oncology Inp Consult Note ---
Date of Encounter: 12/30/17 Time of Encounter: 16:56 Assessment and Plan (1) Deep vein thrombosis of lower extremity Status: Acute Assessment and plan: Acute DVT left lower extremity. She had new clot on therapeutic doses of Coumadin on the left lower extremity. Coumadin also suppresses protein S and protein C and protein levels are usually low during to begin with This could make it more hypercoagulable Given that she is planning on breast-feeding newer oral anticoagulation agents are not safe Recommend Lovenox 70 mg subcutaneous twice a day for the duration of . Once she completes may transition her to factor X A inhibitors like Eliquis. Proceed with Hypercoagulable workup Vascular surgery consult noted. She progressed mechanical thrombectomy and iliac vein angioplasty on 12/24/2017 repeat mechanical thrombectomy with Micheal lysis recommended. Advice to about clinical risk for PE. Currently she is not short of breath and will continue to watch her closely Qualifiers: Affected thrombotic vein of extremity: iliac Chronicity: acute Laterality : left Qualified Code(s): I82.422 - Acute embolism and thrombosis of left iliac vein (2) Iron deficiency anemia Status: Acute Assessment and plan: Globin 10.6. Also low. Start iron and vitamin C by mouth once a day Qualifiers: Qualified Code(s): D50.9 - Iron deficiency anemia, unspecified - Data of Consult Patient: new to practice Requesting Physician: Pratibha Martinez MD Primary Care Provider: Tayla Kaur Family Provider: Tayla Kaur - Consult Narrative Reason for consult: Acute DVT left lower extremity History of present illness: Ms. Salguero is a 37 year old female had acute left femoral vein DVT admitted 12/21/2017. She underwent thrombectomy through Dr. Alvarez G3 post currently breast-feeding. She had swelling trouble lower extremities with discoloration of skin from mid ankle down a 3 2018. Could be contact dermatitis she had some itching. This cleared with steroids through [employer] mainly on the right side but left side swelling persisted He had nodule delivery 12/14/2017 Her swelling got slightly worse since 12/16/2017. She is diagnosed with acute DVT 12/21/2017 and 2 days of Lovenox followed by Coumadin. Subsequently hospitalized with some more pain and had thrombectomy . During this admission she presents to the ER for worsening left thigh pain. . Her INR was noted to be 4.4 on 12/26/17 and as per her PCP's recommendation, she held her coumadin for two days and lowered the dose. She is noted to have INR of 1.9 12/29/2017 and venous doppler of LLL reported an acute DVT. This is her first episode of DVT. She went through 2 pregnancies and without any clot No family history of blood clot Past Med Surg Social Fam HX - Past Medical History Medical history: DVT Psychiatric history: no psych history - Past Surgical History Surgical History: no surgical history - Social History Smoking Status: Never smoker Smokeless Tobacco Status: No Alcohol use: none Drug use: none - Family History Mother Living Status: Still Living Hx Family Medical Disorders: No Father Living Status: Still Living Hx Family Medical Disorders: No Medications and Allergies Warfarin [Coumadin] 1 mg PO Q48H 12/29/17 [History] Warfarin [Coumadin] 2.5 mg PO Q48H 12/29/17 [History] 3 Allergy/AdvReac Type Severity Reaction Status Date / Time No Known Allergies Allergy Verified 12/29/17 10:15 Review of systems: No palpitation. Denied shortness of breath. No clinical evidence of PE Oncology - Exam - Constitutional Vitals: Temp Pulse Resp BP Pulse Ox 97.8 F 74 14 115/76 98 12/29/17 15:56 12/29/17 15:56 12/29/17 15:56 12/29/17 15:56 12/29/17 15:56 Exam: GENERAL: Alert and oriented, well appearing. Mental Status: Affect appropriate for circumstances HEENT: Sclerae anicteric. No mucositis or thrush. No other oral or pharyngeal lesions or erythema. Skin: No rashes or petechiae. No evidence of skin malignancy Lymph nodes: No cervical, supraclavicular, axillary, or inguinal adenopathy. Lungs: Air entry normal with normal breath sounds. No rhonchi or wheezing Cardiovascular: Regular rate and rhythm. No skipped beats Abdomen: Soft, nontender; no organomegaly or masses palpable. Extremities: Tenderness and swelling left lower extremity from thigh to foot Neurologic: Alert, cranial nerves II-XII intact; normal gait; no focal weakness or sensory abnormalities Consult Discharge Plan - Plan Referrals: Tayla Kaur MD [Primary Care Provider] -
--- NOTE | 2017-12-29 17:34 | Vascular/Endovasc Consult Note ---
Date of Encounter: 12/29/17 Time of Encounter: 17:30 Assessment and Plan (1) Deep vein thrombosis of lower extremity Current Visit: Yes Status: Acute Recurrent left iliofemoral deep venous thrombosis despite Coumadin therapy and mechanical venous thrombectomy and iliac vein balloon angioplasty. No history of coagulopathy. Patient is now on intravenous heparin drip. I reviewed the findings with the patient. I discussed the potential for a repeat mechanical thrombectomy with Micheal lysis. I also anticipated she would require repeat iliac vein angioplasty. I discussed with her the potential placement of an endovascular venous stent but that due to her young age this treatment would try to be avoided. As today is Saturday and the patient will be followed by Dr. Alvarez tomorrow I suggested that she be placed on nothing by mouth status tonight. I've asked that her legs be elevated so that her knee and ankle are higher than her heart. All questions were answered. Patient understands the present situation. Qualifiers: Affected thrombotic vein of extremity: iliac Chronicity: acute Laterality : left Qualified Code(s): I82.422 - Acute embolism and thrombosis of left iliac vein (2) Status post normal vaginal delivery Current Visit: No Status: Acute Recent delivery at [facility]. - History of Present Illness Consult date: 12/29/17 Consult reason: Recurrent left lower extremity pain and swelling Chief complaint: Left lower extremity pain History of present illness: Ms. Salguero is a 37 year old female Who was admitted via the emergency room earlier today. The patient had severe left 5 pain on standing and weightbearing as well as at rest. The patient is approximately 2 weeks . She was identified last week as having a left iliofemoral DVT. She failed medical treatment and went on to have a venous thrombus lysis with mechanical thrombectomy with Dr. Alvarez on December 24. The patient was found to have a high-grade left common iliac vein stenosis. This was treated at the time of the venous thrombectomy with balloon angioplasty. No venous stents were placed. The following day the patient felt remarkably better. She was then discharged on Coumadin therapy. The day after discharge she began having discomfort in the left leg and in particular the left thigh region. This has been slowly progressive over the ensuing days. I was called by the early this morning and recommended the patient come to the emergency room for evaluation. A repeat venous duplex scan was performed which demonstrated re-formation of a left iliofemoral deep venous thrombosis. The patient was admitted to the hospitalist service and placed on an intravenous heparin drip. Vascular surgery was asked to see the patient again for recommendations. The patient has no family history or personal history of coagulopathy. As noted above she is now approximately 2 weeks. She is breast-feeding. The patient was prescribed Coumadin and she has been taking the Coumadin as directed since her discharge last week. Past Med Surg Social Fam HX - Past Medical History Medical history: DVT Psychiatric history: no psych history - Past Surgical History Surgical History: no surgical history, vascular surgery (Left lower extremity iliofemoral mechanical venous thrombectomy and left common iliac vein balloon angioplasty on December [address] Alvarez) - Social History Smoking Status: Never smoker Smokeless Tobacco Status: No Alcohol use: none Drug use: none - Family History Mother Living Status: Still Living Hx Family Medical Disorders: No Father Living Status: Still Living Hx Family Medical Disorders: No Medications and Allergies Warfarin [Coumadin] 1 mg PO Q48H 12/29/17 [History] Warfarin [Coumadin] 2.5 mg PO Q48H 12/29/17 [History] 3 Allergy/AdvReac Type Severity Reaction Status Date / Time No Known Allergies Allergy Verified 12/29/17 10:15 All Systems Review: The remainder of the systems were reviewed and are negative Exam Vital Signs, Last 4 Hours Temp Pulse Resp BP Pulse Ox 12/29/17 15:56 97.8 F 74 14 115/76 98 12/29/17 14:28 98.3 F 85 16 111/70 96 General: Present: Conversant, No Apparent Distress, Well developed, Well nourished HEENT: Present: Atraumatic, Normocephaly, Trachea midline Neck: Absent: JVD Neuro: Present: Alert and responsive, No focal deficits noted, Cranial nerves grossly intact Abdomen: Present: Soft, Non-tender. Absent: Masses Vascular: Present: Normal capillary refill, Pulse, normal, Edema (Patient has edema of the left lower extremity compared to the right. The edema is particular pronounced in the fine area. The edema is more proximal than distal. There are no varicose veins present. There are no palpable masses.) Skin: Present: No rashes noted on visualized skin. Absent: Wound/ulcer(s) Consult Discharge Plan - Plan Referrals: Tayla Kaur MD [Primary Care Provider] -
[2017-12-29] MEDS: Capsaicin 0.025% 60 GM TUBE TP SCH ×2 (17:57→20:10)
[2017-12-29 18:46] LABS: % Iron Saturation 5 % (15-50); Iron 24 mcg/dL (50-170); Transferrin 357 mg/dL (203-362)
[2017-12-29] MEDS: *HR* Heparin 5,000 UNIT/ML VIAL IVP PRN (20:10)
[2017-12-30 02:21] LABS: Basophils # 0.1 K/mcL (0.0-0.2); Basophils % 0.8 %; Eosinophils # 0.3 K/mcL (0.0-0.6); Eosinophils % 3.2 %; Hematocrit 32.1 % (35.3-44.9); Hemoglobin 10.6 g/dL (11.5-15.4); Immature Granulocytes % 0.6 % (0-4); Lymphocytes # 2.5 K/mcL (0.6-4.6); Mean Corpuscular Hemoglobin 29.6 pg (28.0-33.3); Mean Corpuscular Volume 89.7 fL (83.0-100.0); Mean Platelet Volume 9.3 fL (9.4-12.4); Monocytes % 9.6 %; Neutrophils # 6.5 K/mcL (1.6-8.9); Platelet Count 276 K/mcL (140-400); Red Blood Count 3.58 M/mcL (3.82-4.97); Red Cell Distribution Width 13.9 % (11.5-14.5); Segmented Neutrophils % 61.8 %
[2017-12-30 02:39] LABS: BUN/Creatinine Ratio 21 (6-26); Blood Urea Nitrogen 9 mg/dL (6-20); Calcium 8.9 mg/dL (8.6-10.3); Carbon Dioxide 26 mEq/L (23-29); Chloride 108 mEq/L (98-107); Glucose 92 mg/dL (70-105); Osmolality,Calculated 288 (280-300); Phosphorous 3.6 mg/dL (2.7-4.5); Potassium 3.9 mEq/L (3.5-5.1); Sodium 140 mEq/L (136-145); eGFR For African Americans > 60 (> 60); eGFR For Non-African Americans > 60 (> 60)
[2017-12-30] MEDS: *HR* Heparin 5,000 UNIT/ML VIAL IVP PRN ×2 (04:07→17:12)
[2017-12-30] MEDS: Capsaicin 0.025% 60 GM TUBE TP SCH ×3 (09:24→17:16)
[2017-12-30] MEDS: Heparin 25,000 UNIT/500 ML D5W 25,000 UNIT/500 ML BAG IVC SCH (11:37)
[2017-12-30 13:23] LABS: Ferritin 90 ng/ml (10-120)
--- NOTE | 2017-12-30 13:25 | Internal Med Progress Note ---
Date of Encounter: 12/30/17 Time of Encounter: 13:23 - Assessment and plan (1) Deep vein thrombosis of lower extremity Current Visit: Yes Status: Acute Assessment and plan: Vascular surgery following and plan for possible intervention today Qualifiers: Affected thrombotic vein of extremity: iliac Chronicity: acute Laterality : left Qualified Code(s): I82.422 - Acute embolism and thrombosis of left iliac vein (2) Lactating mother Current Visit: No Status: Chronic Assessment and plan: Patient not some mom from recent vaginal delivery (3) anemia Current Visit: No Status: Chronic Assessment and plan: Hemoglobin is stable - Time Spent With Patient Total time spent is greater than 50% in coordination of care (as documented) at patient's floor/unit and/or counseling patient: - Subjective Interval history: Patient with history of DVT had thrombectomy and also left thigh hematoma evacuation patient presented again with left leg pain Repeat ultrasound shows acute DVT patient being seen by vascular surgery plan on interventions sometime today - Constitutional Vitals: Temp Pulse Resp BP Pulse Ox 98.4 F 71 18 103/63 96 12/30/17 10:49 12/30/17 10:49 12/30/17 10:49 12/30/17 10:49 12/30/17 10:49 General appearance: Present: cooperative, A&O X 3, no acute distress, answers questions appropriately Internal Medicine: Result - Labs CBC & Chem 7: 12/30/17 02:04 12/30/17 02:04 Labs: Short CBC 12/30/17 Range/Units 02:04 WBC 10.4 (4.3-11.1) K/mcL Hgb 10.6 L (11.5-15.4) g/dL Hct 32.1 L (35.3-44.9) % Plt Count 276 (140-400) K/mcL Neutrophils # 6.5 (1.6-8.9) K/mcL BMP 12/30/17 02:04 Sodium 140 Potassium 3.9 Chloride 108 H Carbon Dioxide 26 BUN 9 Creatinine 0.42 L Glucose 92 Calcium 8.9 - ABG Interpretation ABG results: PT/INR, D-dimer PT 20.7 Seconds (9.4-12.1) H D 12/29/17 11:10 Consult Discharge Plan - Plan Referrals: Tayla Kaur MD [Primary Care Provider] -
[2017-12-30] MEDS ORDERED: Bupivacaine-MPF 0.25% 10 ML VIAL ONE (20:47)
[2017-12-30] MEDS ORDERED: Heparin 1,000 UNITS/500 mL 500 ML ONE ×3 (20:47→23:09)
[2017-12-30] MEDS ORDERED: Isovue-300 50 ML VIAL IVP ONE (20:52)
[2017-12-30] MEDS ORDERED: Scopolamine Patch 1.5 MG PATCH.TD72 ONE (21:30)
[2017-12-30] MEDS ORDERED: WATER FOR INJ IVPB ONE (21:30)
[2017-12-30] MEDS ORDERED: ALTEPLASE IVPB ONE (21:30)
[2017-12-30] MEDS ORDERED: *HR* Succinylcholine 200 MG/10 ML VIAL IVP ONE (21:39)
[2017-12-30] MEDS ORDERED: *HR* Propofol 200 MG/20 ML VIAL IVP ONE ×2 (21:39→22:19)
[2017-12-30] MEDS ORDERED: *HR* FentaNYL (PF) 100 MCG/2 ML VIAL ONE (21:39)
[2017-12-30] MEDS ORDERED: Lidocaine -MPF 2% 2 ML VIAL ONE (21:39)
[2017-12-30] MEDS ORDERED: *HR* Midazolam HCl 2 MG/2 ML VIAL ONE (21:39)
--- NOTE | 2017-12-30 21:47 | Anesthesia Evaluation PreOp ---
Date of Encounter: 12/30/17 Time of Encounter: 21:45 - Past History Planned Operation: LLE mechanical thrombectomy Cardiac History: Denies any Significant Hx Pulmonary History: Former smoker (quit in college) [employer] History: Denies Any Significant HX Other Medical History: Other (LLE DVT external iliac/common femoral vein) Anesthesia History: Problems (nausea) Alcohol Use: none Drug use: none Medications and Allergies Warfarin [Coumadin] 1 mg PO Q48H 12/29/17 [History] Warfarin [Coumadin] 2.5 mg PO Q48H 12/29/17 [History] 3 Allergy/AdvReac Type Severity Reaction Status Date / Time No Known Allergies Allergy Verified 12/29/17 10:15 - Meds/Allergy Pre-op Review Medications Reviewed: Yes Allergies Reviewed: Yes Beta Blockers on Current Med List: No Anesthesia Results - Labs 12/30/17 02:04 12/30/17 02:04 - Imaging EKG: report reviewed, image reviewed (SINUS BRADYCARDIA POSSIBLE RIGHT VENTRICULAR CONDUCTION DELAY) Anesthesia Exam Last Vital Signs Temp 98.8 F 12/30/17 19:26 Pulse 75 12/30/17 19:26 Resp 14 12/30/17 19:26 BP 100/70 12/30/17 19:26 Pulse Ox 95 12/30/17 19:26 Weight: 70 kg NPO (# of Hours): > 8 hrs - HEENT Pupil (Motor): Pupils equal, EOMI Mallampati: I Teeth: Normal Oral Opening: Greater than 3 - [employer] LOC: Oriented - Cardiac Rhythm: Regular Murmur: None - Pulmonary Breath Sounds: bilateral Clear Respiratory Effort: Symmetrical Anesthesia Assess/Plan ASA Score: 2 Modified Sudha Scale for Level of Consciousness: Cooperative, oriented, and tranquil Anesthetic Plan: General Monitoring Plan: Standard Monitors Recovery Plan: PACU
--- NOTE | 2017-12-30 21:50 | Vascular/Endovas Progress Note ---
Date of Encounter: 12/30/17 Time of Encounter: 12:55 - Assessment and plan (1) Deep vein thrombosis of lower extremity Current Visit: Yes Status: Acute The patient has recently undergone a left lower extremity venous mechanical thrombectomy with lytic therapy. Her symptoms did resolve after the procedure however she now has recurrent symptoms in left lower extremity. She reports less edema and pain then during her previous original presentation. Her duplex reveals recurrent venous thrombosis. She was adequately with Coumadin however Coumadin does not appear to be a good anticoagulant for this patient. Given her recurrent thrombosis long-term patency appears less likely. She was seen by hematology and is recommended that she be placed on Lovenox 1 mg/kg twice daily. The patient will proceed to the OR for repeat venous mechanical thrombectomy with possible angioplasty, possible stent placement and possible inferior vena cava filter placement. Risks benefits and alternatives of the procedure were discussed and all questions were answered. She expressed understanding and wishes to proceed. Qualifiers: Affected thrombotic vein of extremity: iliac Chronicity: acute Laterality : left Qualified Code(s): I82.422 - Acute embolism and thrombosis of left iliac vein - Subjective Interval history: The patient presents and symptoms of pain and swelling in the left lower extremity. She denies any chest pain or shortness of breath. Vital Signs, Last 4 Hours Temp Pulse Resp BP Pulse Ox 12/30/17 19:26 98.8 F 75 14 100/70 95 - Physical Examination General: Present: Conversant, No Apparent Distress Cardiac: Present: Reg Rate and Rhythm Lungs: Present: Normal Breath Sounds Neuro: Present: Alert and responsive, No focal deficits noted Vascular: Present: Normal capillary refill, Pulse, normal, Edema (2+ edema in the left lower extremity), Color/Temperature (Left foot warm). Absent: Cyanosis Abdomen: Present: Soft, Non-tender Results 12/30/17 02:04 12/30/17 02:04 Lab Results, Last 24 hours 12/30/17 15:59 APTT 54.3 H - Imaging / Other Tests Non Invasive Vascular Testing: report reviewed Consult Discharge Plan - Plan Referrals: Tayla Kaur MD [Primary Care Provider] -
[2017-12-30] MEDS ORDERED: Dexamethasone 4 MG/ML VIAL ONE (22:32)
[2017-12-30] MEDS ORDERED: Ondansetron 4 MG/2 ML VIAL ONE (22:32)
[2017-12-30] MEDS ORDERED: *HR* Heparin 5,000 UNIT/ML VIAL ONE (22:39)
[2017-12-30] MEDS ORDERED: *HR* OxyCODONE Immed Rel 5 MG TABLET PO PRN (22:56)
[2017-12-30] MEDS ORDERED: *HR* Promethazine 25 MG/ML VIAL IVP PRN (22:56)
--- NOTE | 2017-12-31 00:29 | Operative Note ---
Date of procedure: 12/30/17 Pre-op diagnosis: Recurrent left iliac and femoral deep vein thrombosis Post-op diagnosis: same Procedure: 1. Left lower extremity venous mechanical thrombectomy with Angiojet Solent Omni Catheter. 2. Left femoral to popliteal venous angioplasty with 6 x 150mm balloon. 3. Left iliac venous angioplasty with 10 x 40mm balloon. Complications: None Anesthesia: GETA Surgeon: Delfino Alvarez Was there an production administrative assistant present: No Estimated blood loss (cc): 25 Specimen: None Condition: stable Disposition: PACU Procedure in Detail: Indications: The patient is a 37-year-old female who recently delivered a third child. In the . She was found to have deep venous thrombosis. She was initially treated with Lovenox and Coumadin. She failed this and was admitted to [facility]. The patient underwent a venous mechanical thrombectomy and venous angioplasty. She tolerated the procedure well. She was discharged on Xarelto. However, she presented to the emergency room with a recurrent deep vein thrombosis and was admitted. The patient was started on heparin drip and vascular surgery was counseled for further evaluation. Given the extent for recurrent deep vein thrombosis as well as her symptoms repeat venous imaging and intervention were recommended. Operative procedure: The patient was identified in the preoperative area. The left lower extremity was marked and a stop sign was placed on the opposite leg The risks, benefits and alternatives of the procedure were discussed with the patient and all questions were answered. She was then taken to the operating room. After the induction of general endotracheal anesthesia he was placed on the table in the prone position. She was then prepped and draped sterilely in the usual fashion. Percutaneous access of the left popliteal vein was performed with a large-bore needle the ultrasound guidance. A freeeson wire was advanced into the superficial femoral vein under fluoroscopic guidance. The needle was exchanged for a 6-Bel[place]ian sheath. A Carboniteenstein catheter was advanced over the wire. Wire was advanced into the level of the inferior vena cava. The catheter was removed and an AngioJet Solent Omni catheter was advanced over the wire the catheter was placed in palpable pulse mode and 10 mg of alteplase and 100 mL of solution was infused into the thrombus. Particular attention was given to the proximal iliac vessels where she previously was noted to have significant stenosis. The alteplase was allowed to work for several minutes. Penis mechanical thrombectomy was performed with the Solent Omni catheter. Venography revealed partial resolution of the thrombus with significant improvement in flow within the superficial femoral common femoral and iliac veins. Additional mechanical thrombectomy was performed with serial imaging that resulted in significant improvement of the resolution of the thrombus. A 10 x 40 mm balloon was used to perform angioplasty along the iliac vessels. A 6 x 1 50 mm balloon was then used to perform angioplasty on the left femoral vessels. Multiple inflations of the balloons were performed in order to traverse the entire vessels. Upon completion of the angioplasty, angiography revealed significant improvement in the luminal diameter as well as significant reduction of the venous thrombosis. The catheter wire and sheath were removed. Direct pressure was held to aid in hemostasis. A V-pad was also used to aid in hemostasis. A sterile dressing was then applied followed by compressive Brian wraps from the foot to the proximal thigh. The patient was extubated to recovery room in stable condition.
[2017-12-31] MEDS: Heparin 25,000 UNIT/500 ML D5W 25,000 UNIT/500 ML BAG IVC SCH ×2 (00:44→22:39)
[2017-12-31] MEDS ORDERED: Naloxone 0.4 MG/ML INJ IVP PRN ×2 (00:50)
[2017-12-31] MEDS ORDERED: Heparin 25,000 UNIT/500 ML D5W 25,000 UNIT/500 ML BAG IVC SCH (00:50)
[2017-12-31] MEDS ORDERED: *HR* Heparin 5,000 UNIT/ML VIAL IVP PRN (00:50)
--- NOTE | 2017-12-31 00:53 | Anesthesia Evaluation Post Op ---
Date of Encounter: 12/31/17 Time of Encounter: 00:52 - Vital Signs Vital Signs: Last Vital Signs Temp 97.7 F 12/31/17 00:19 Pulse 58 12/31/17 00:39 Resp 18 12/31/17 00:39 BP 136/98 12/31/17 00:39 Pulse Ox 97 12/31/17 00:39 - Lungs Lungs: Clear Ascult./Percussion - Airway Airway: Non-obstructed - Cardiovascular Regular Rate - Mental Status Mental Status: Alert & Oriented, Answers Appropriately - Pain Pain Scale: 2 - Nausea Vomiting Nausea Vomiting: Not Present - Hydration Hydration: Ice chips - Discharge PostOp Status: Transfer Patient to floor
[2017-12-31 01:44] LABS: Basophils # 0.1 K/mcL (0.0-0.2); Basophils % 0.4 %; Eosinophils % 0.2 %; Hematocrit 31.3 % (35.3-44.9); Hemoglobin 10.5 g/dL (11.5-15.4); Immature Granulocytes % 1.3 % (0-4); Lymphocytes # 0.7 K/mcL (0.6-4.6); Lymphocytes % 5.5 %; Mean Corpuscular HGB Conc 33.5 g/dL (31.6-35.5); Mean Corpuscular Hemoglobin 30.1 pg (28.0-33.3); Mean Corpuscular Volume 89.7 fL (83.0-100.0); Mean Platelet Volume 9.4 fL (9.4-12.4); Monocytes # 0.6 K/mcL (0.0-1.3); Monocytes % 4.7 %; Neutrophils # 11.7 K/mcL (1.6-8.9); Platelet Count 282 K/mcL (140-400); Red Blood Count 3.49 M/mcL (3.82-4.97); Red Cell Distribution Width 14.2 % (11.5-14.5); Segmented Neutrophils % 87.9 %
[2017-12-31 02:07] LABS: BUN/Creatinine Ratio 22 (6-26); Blood Urea Nitrogen 15 mg/dL (6-20); Calcium 8.7 mg/dL (8.6-10.3); Carbon Dioxide 22 mEq/L (23-29); Chloride 106 mEq/L (98-107); Glucose 81 mg/dL (70-105); Osmolality,Calculated 286 (280-300); Potassium 4.3 mEq/L (3.5-5.1); Sodium 138 mEq/L (136-145); eGFR For African Americans > 60 (> 60); eGFR For Non-African Americans > 60 (> 60)
[2017-12-31] MEDS: *HR* Heparin 5,000 UNIT/ML VIAL IVP PRN ×3 (02:39→18:03)
[2017-12-31] MEDS ORDERED: Ascorbic Acid 500 MG TABLET PO SCH (09:00)
[2017-12-31] MEDS: Capsaicin 0.025% 60 GM TUBE TP SCH ×4 (09:09→22:27)
[2017-12-31] MEDS: Ascorbic Acid 500 MG TABLET PO SCH (09:09)
--- NOTE | 2017-12-31 16:08 | Oncology Inp Progress Note ---
<Winter Williamson L - Last Filed: 12/31/17 16:06> Date of Encounter: 12/31/17 Time of Encounter: 15:30 (1) Deep vein thrombosis of lower extremity Current Visit: Yes Status: Acute Assessment and plan: S/P Left lower extremity venous mechanical thrombectomy, Left femoral to popliteal venous angioplasty, Left iliac venous angioplasty with Dr. Alvarez last evening. Recommend Lovenox 70 mg subcutaneous twice a day for the duration of . Once she completes may transition her to factor X A inhibitors like Eliquis. Hypercoagulable workup-ordered, still pending Advice to about clinical risk for PE. Currently she denies SOB, Chest pain or pain with inspiration and will continue to watch her closely Discussed continuing iron for her DYLLAN likely secondary to recent vaginal delivery/acute blood loss. NO s/s bleeding, hgb is stable, continue to monitor. She has a follow up with Dr. Black as already arranged next week. At this time hematology will sign off, please feel free to contact for any further questions or concerns. Qualifiers: Affected thrombotic vein of extremity: iliac Chronicity: acute Laterality : left Qualified Code(s): I82.422 - Acute embolism and thrombosis of left iliac vein Oncology: Subj Interval history: Ms. Salguero states she feels some relief following her thrombectomy. She is ambulating in room and to bathroom. and son at bedside. She denies chest pain, SOB or pain with inspiration. - Constitutional Vitals: Vital Signs Temp Pulse Resp BP Pulse Ox 12/31/17 14:49 98.0 F 81 18 94/57 95 12/31/17 11:20 97.6 F 57 16 104/58 93 12/31/17 07:07 98.2 F 76 18 112/69 93 12/31/17 04:00 98.3 F 42 16 132/84 95 12/31/17 03:03 98.1 F 44 16 128/82 96 12/31/17 02:16 98.3 F 42 15 128/78 94 12/31/17 01:33 97.6 F 54 16 131/80 94 12/31/17 01:00 98.3 F 51 16 129/82 94 12/31/17 00:49 98.4 F 49 18 145/93 97 12/31/17 00:39 58 18 136/98 97 12/31/17 00:29 68 18 148/89 96 12/31/17 00:19 97.7 F 71 18 149/98 97 12/30/17 19:26 98.8 F 75 14 100/70 95 Intake and Output 12/31/17 12/31/17 12/31/17 07:59 15:59 23:59 Intake Total 318 / 318 159 / 159 Output Total Balance 308 / 308 159 / 159 Intake: IV Fluids 318 / 318 59 / 59 Heparin 25,000 UNIT/500 ML D5W 318 / 318 59 / 59 25,000 unit In 500 ml @ 14 UNIT /KG/HR 19.051 mls/hr IVC .Q24H QUINTIN Rx#:[id number] Oral 100 / 100 Output: Estimated Blood Loss Other: Meal Lunch Percent of Meal Consumed 5% # Voids 1 General appearance: cooperative, no acute distress, no febrile - Head Head exam: Present: atraumatic - ENT ENT exam: Present: mucous membranes moist - Respiratory Respiratory exam: Present: CTAB. Absent: respiratory distress - Cardiovascular Cardiovascular exam: Present: RRR, +S1, +S2 - GI/Abdominal GI/Abdominal exam: Present: normal bowel sounds, soft. Absent: tenderness - Extremities Exam Additional comments: left calf pain/groin pain improving but still present, gaurav bandage to LLE intact - Neurological Exam Neurological exam: Present: alert, oriented X3, no focal deficits, strengths equal and symetr throughout - Psychiatric Psychiatric exam: Present: normal affect, normal mood - Skin Skin exam: Present: dry, intact, normal color, warm Oncology: Obj Data - Labs CBC & Chem 7: 12/31/17 01:31 12/31/17 01:31 - Impressions Impressions Fluoroscopy 12/30/17 22:30 IMPRESSION: Intraprocedural fluoroscopic spot images as above. See separate procedure report for more information. D/ /31/2017 06:23:54 Rosales Townsend MD / [email or web address] Interpreting Provider: Rosales Townsend MD - ABG Interpretation ABG results: PT/INR, D-dimer PT 20.7 Seconds (9.4-12.1) H D 12/29/17 11:10 Consult Discharge Plan - Plan Referrals: Tayla Kaur MD [Primary Care Provider] - <Eris Celaya - Last Filed: 01/01/18 08:28> Date of Encounter: 01/01/18 Oncology: Subj Interval history: I examined this patient and my medical decision-making was reviewed with the Advanced Practice Nurse, Winter Williamson. I agree with the documented findings, disposition and treatment plan as described except to the extent set forth below. - Constitutional Vitals: Vital Signs Temp Pulse Resp BP Pulse Ox 01/01/18 06:42 98.5 F 60 18 105/68 97 12/31/17 22:56 98.3 F 68 16 95/59 95 12/31/17 19:10 97.6 F 58 14 98/52 98 12/31/17 14:49 98.0 F 81 18 94/57 95 12/31/17 11:20 97.6 F 57 16 104/58 93 Intake and Output 12/31/17 01/01/18 01/01/18 23:59 07:59 15:59 Intake Total 403 / 403 84 / 84 Balance 403 / 403 84 / 84 Intake: IV Fluids 403 / 403 84 / 84 Heparin 25,000 UNIT/500 ML D5W 403 / 403 84 / 84 25,000 unit In 500 ml @ 14 UNIT /KG/HR 19.051 mls/hr IVC .Q24H QUINTIN Rx#:[id number] Oral 0 / 0 Other: Meal Dinner Percent of Meal Consumed 0% Oncology: Obj Data - Labs CBC & Chem 7: 12/31/17 01:31 12/31/17 01:31 Labs: Laboratory Results - last 24 hr 12/31/17 12/31/17 01/01/18 08:40 14:38 00:37 APTT 53.4 H 45.8 H 55.1 H 01/01/18 08:07 APTT 93.5 H D - ABG Interpretation ABG results: PT/INR, D-dimer PT 20.7 Seconds (9.4-12.1) H D 12/29/17 11:10
--- NOTE | 2017-12-31 16:29 | Internal Med Progress Note ---
Date of Encounter: 12/31/17 Time of Encounter: 13:00 - Assessment and plan (1) Deep vein thrombosis of lower extremity Current Visit: Yes Status: Acute Assessment and plan: Preliminary venous doppler report: ACUTE DVT and SVT of left lower extremity. Thrombus noted at high as the level of the distal iliac, noted in common femoral , GSV, and extended through SFV distally above knee Vascular surgery following and patient postop day 0 for lower extremity venous mechanical thrombectomy and left femoral to popliteal venous angioplasty in addition to left iliac venous angioplasty Hematology also consulted for recommendations for Lovenox 70 mg subcutaneous twice daily while lactating) once completed to transition to factor X A inhibitors like Eliquis. Qualifiers: Affected thrombotic vein of extremity: iliac Chronicity: acute Laterality : left Qualified Code(s): I82.422 - Acute embolism and thrombosis of left iliac vein (2) Lactating mother Current Visit: No Status: Chronic Assessment and plan: Patient will treated with Lovenox subcutaneous while lactating (3) anemia Current Visit: No Status: Chronic Assessment and plan: H&H low but acceptable no acute bleeding reported at this time continue to closely monitor H&H - Time Spent With Patient Total time spent is greater than 50% in coordination of care (as documented) at patient's floor/unit and/or counseling patient: - Subjective Interval history: Patient resting comfortably this morning and no acute distress Vascular surgery following and patient postop day 0 for lower extremity venous mechanical thrombectomy and left femoral to popliteal venous angioplasty in addition to left iliac venous angioplasty - Constitutional Vitals: Temp Pulse Resp BP Pulse Ox 98.0 F 81 18 94/57 95 12/31/17 14:49 12/31/17 14:49 12/31/17 14:49 12/31/17 14:49 12/31/17 14:49 General appearance: Present: cooperative, A&O X 3, no acute distress, answers questions appropriately - Respiratory Respiratory exam: Present: CTAB. Absent: accessory muscle use, rales, rhonchi, wheezes - Cardiovascular Cardiovascular exam: Present: RRR, +S1, +S2. Absent: diastolic murmur, gallop, rubs, systolic murmur Internal Medicine: Result - Labs CBC & Chem 7: 12/31/17 01:31 12/31/17 01:31 Labs: Short CBC 05/22/18 Range/Units 01:31 WBC 13.4 H (4.3-11.1) K/mcL Hgb 10.5 L (11.5-15.4) g/dL Hct 31.3 L (35.3-44.9) % Plt Count 282 (140-400) K/mcL Neutrophils # 11.7 H (1.6-8.9) K/mcL BMP 12/31/17 01:31 Sodium 138 Potassium 4.3 Chloride 106 Carbon Dioxide 22 L BUN 15 Creatinine 0.67 Glucose 81 Calcium 8.7 - ABG Interpretation ABG results: PT/INR, D-dimer PT 20.7 Seconds (9.4-12.1) H D 12/29/17 11:10 - Impressions Impressions Fluoroscopy 12/30/17 22:30 IMPRESSION: Intraprocedural fluoroscopic spot images as above. See separate procedure report for more information. D/ / 12/31/2017 06:23:54 Rosales Townsend MD / [email or web address] Interpreting Provider: Rosales Townsend MD - VTE Documentation of Mechanical Device: Intermittent pneumatic compression device Consult Discharge Plan - Plan Referrals: Tayla Kaur MD [Primary Care Provider] -
[2018-01-01] MEDS: *HR* Heparin 5,000 UNIT/ML VIAL IVP PRN (02:02)
[2018-01-01] MEDS: Capsaicin 0.025% 60 GM TUBE TP SCH ×4 (09:12→22:08)
[2018-01-01] MEDS: Ascorbic Acid 500 MG TABLET PO SCH (09:12)
--- NOTE | 2018-01-01 17:52 | Vascular/Endovas Progress Note ---
Date of Encounter: 01/01/18 Time of Encounter: 17:10 - Assessment and plan (1) Deep vein thrombosis of lower extremity Current Visit: Yes Status: Acute The patient has recently undergone a left lower extremity venous mechanical thrombectomy with lytic therapy. Her symptoms did resolve after the procedure however she now has recurrent symptoms in left lower extremity. She reports less edema and pain then during her previous original presentation. Her duplex reveals recurrent venous thrombosis. She was adequately with Coumadin however Coumadin does not appear to be a good anticoagulant for this patient. Given her recurrent thrombosis long-term patency appears less likely. She was seen by hematology and is recommended that she be placed on Lovenox 1 mg/kg twice daily. The patient will proceed to the OR for repeat venous mechanical thrombectomy with possible angioplasty, possible stent placement and possible inferior vena cava filter placement. Risks benefits and alternatives of the procedure were discussed and all questions were answered. She expressed understanding and wishes to proceed. Qualifiers: Affected thrombotic vein of extremity: iliac Chronicity: acute Laterality : left Qualified Code(s): I82.422 - Acute embolism and thrombosis of left iliac vein - Subjective Interval history: The patient reports that she continues to feel better. She denies any increased swelling, pain or tenderness. She denies any chest pain or shortness of breath. Vital Signs, Last 4 Hours Temp Pulse Resp BP Pulse Ox 01/01/18 14:57 98.2 F 70 18 98/61 99 - Physical Examination General: Present: Conversant Cardiac: Present: Reg Rate and Rhythm Lungs: Present: Normal Breath Sounds Neuro: Present: Alert and responsive, No focal deficits noted Vascular: Present: Pulse, normal, Edema (Trace left lower extremity edema). Absent: Cyanosis - VTE Documentation of Mechanical Device: Intermittent pneumatic compression device Results 12/31/17 01:31 12/31/17 01:31 Lab Results, Last 24 hours 01/01/18 01/01/18 00:37 08:07 APTT 55.1 H 93.5 H D Consult Discharge Plan - Plan Referrals: Tayla Kaur MD [Primary Care Provider] -
[2018-01-01] MEDS: Heparin 25,000 UNIT/500 ML D5W 25,000 UNIT/500 ML BAG IVC SCH (18:21)
[2018-01-01 18:26] LABS: APTT (LE Anticoag) 82 sec (32-48); Diluted Russell Viper Venom 36 sec (33-44); LE APTT D Heparin Neutralized 64 sec (32-48); LE Coag APTT Mixing 47 sec (32-48); LE Coag Reptilase Time 17.4 sec (<=21.9); PT (LE-Anticoag) 17.9 sec (12.0-15.5); Thrombin Time 20.9 sec (14.7-19.5)
--- NOTE | 2018-01-01 18:26 | Internal Med Progress Note ---
Date of Encounter: 01/01/18 Time of Encounter: 11:00 - Assessment and plan (1) Deep vein thrombosis of lower extremity Current Visit: Yes Status: Acute Assessment and plan: Preliminary venous doppler report: ACUTE DVT and SVT of left lower extremity. Thrombus noted at high as the level of the distal iliac, noted in common femoral , GSV, and extended through SFV distally above knee Vascular surgery following and patient postop day 1 for lower extremity venous mechanical thrombectomy and left femoral to popliteal venous angioplasty in addition to left iliac venous angioplasty Hematology also consulted for recommendations for Lovenox 70 mg subcutaneous twice daily while lactating) once completed to transition to factor X A inhibitors like Eliquis. Qualifiers: Affected thrombotic vein of extremity: iliac Chronicity: acute Laterality : left Qualified Code(s): I82.422 - Acute embolism and thrombosis of left iliac vein (2) Lactating mother Current Visit: No Status: Chronic Assessment and plan: Patient will treated with Lovenox subcutaneous while lactating (3) anemia Current Visit: No Status: Chronic Assessment and plan: H&H low but acceptable no acute bleeding reported at this time continue to closely monitor H&H - Time Spent With Patient Total time spent is greater than 50% in coordination of care (as documented) at patient's floor/unit and/or counseling patient: - Subjective Interval history: Patient resting comfortably this morning and no acute distress Vascular surgery following and patient postop day 1 for lower extremity venous mechanical thrombectomy and left femoral to popliteal venous angioplasty in addition to left iliac venous angioplasty - Constitutional Vitals: Temp Pulse Resp BP Pulse Ox 98.2 F 70 18 98/61 99 01/01/18 14:57 01/01/18 14:57 01/01/18 14:57 01/01/18 14:57 01/01/18 14:57 General appearance: Present: cooperative, A&O X 3, no acute distress, answers questions appropriately - Respiratory Respiratory exam: Present: CTAB. Absent: accessory muscle use, rales, rhonchi, wheezes - Cardiovascular Cardiovascular exam: Present: RRR, +S1, +S2. Absent: diastolic murmur, gallop, rubs, systolic murmur Internal Medicine: Result - Labs CBC & Chem 7: 12/31/17 01:31 12/31/17 01:31 - ABG Interpretation ABG results: PT/INR, D-dimer PT 20.7 Seconds (9.4-12.1) H D 12/29/17 11:10 - VTE Documentation of Mechanical Device: Intermittent pneumatic compression device Consult Discharge Plan - Plan Referrals: Tayla Kaur MD [Primary Care Provider] -
[2018-01-01 21:48] LABS: Bilirubin,Urine Negative (Negative); Blood,Urine Large (Negative); Clarity,Urine Cloudy (Clear); Color,Urine Yellow (Yellow); Glucose,Urine (UA) Normal (Normal); Ketones,Urine Negative (Negative); Leukocyte Esterase,Urine Moderate (Negative); Nitrite,Urine Negative (Negative); Protein,Urine Negative (Neg-Trace); Specific Gravity,Urine 1.011 (1.010-1.025); Urobilinogen,Urine Normal (Normal)
[2018-01-01 21:49] LABS: Bacteria,Urine None Seen per hpf (None-Few); Hyaline Casts,Urine None Seen per lpf (None-Few); Squamous Epithelial Cell,Urine Many per lpf (None-Few)
[2018-01-01] MEDS ORDERED: Famotidine 20 MG/2 ML VIAL IVP ONE (21:59)
[2018-01-01 22:15] LABS: RBC,Urine 30-50 per hpf (0-3)
[2018-01-02] MEDS: Pantoprazole 40 MG VIAL IVP SCH ×2 (00:01→08:52)
[2018-01-02] MEDS: Ascorbic Acid 500 MG TABLET PO SCH (08:52)
[2018-01-02] MEDS: Capsaicin 0.025% 60 GM TUBE TP SCH (08:52)
[2018-01-02 12:13] VITALS: BP 112/80
[2018-01-02 12:43] LABS: Basophils # 0.1 K/mcL (0.0-0.2); Basophils % 0.8 %; Eosinophils # 0.3 K/mcL (0.0-0.6); Eosinophils % 3.9 %; Hematocrit 30.7 % (35.3-44.9); Hemoglobin 10.1 g/dL (11.5-15.4); Immature Granulocytes % 1.7 % (0-4); Lymphocytes # 1.9 K/mcL (0.6-4.6); Lymphocytes % 28.9 %; Mean Corpuscular HGB Conc 32.9 g/dL (31.6-35.5); Mean Corpuscular Hemoglobin 29.7 pg (28.0-33.3); Mean Corpuscular Volume 90.3 fL (83.0-100.0); Mean Platelet Volume 8.9 fL (9.4-12.4); Monocytes # 0.6 K/mcL (0.0-1.3); Monocytes % 9.6 %; Platelet Count 257 K/mcL (140-400); Red Cell Distribution Width 14.3 % (11.5-14.5); Segmented Neutrophils % 55.1 %
[2018-01-02 12:45] LABS: Neutrophils # 3.6 K/mcL (1.6-8.9)
[2018-01-02] MEDS ORDERED: cephALEXin 500 MG CAPSULE PO SCH (13:15)
[2018-01-02 13:16] LABS: BUN/Creatinine Ratio 10 (6-26); Blood Urea Nitrogen 5 mg/dL (6-20); Calcium 9.3 mg/dL (8.6-10.3); Carbon Dioxide 26 mEq/L (23-29); Chloride 108 mEq/L (98-107); Glucose 75 mg/dL (70-105); Osmolality,Calculated 286 (280-300); Potassium 3.9 mEq/L (3.5-5.1); Sodium 140 mEq/L (136-145); eGFR For African Americans > 60 (> 60); eGFR For Non-African Americans > 60 (> 60)
--- NOTE | 2018-01-02 14:27 | Vascular/Endovas Progress Note ---
Date of Encounter: 01/02/18 Time of Encounter: 09:05 - Assessment and plan (1) Deep vein thrombosis of lower extremity Current Visit: Yes Status: Acute The patient developed acute left lower extremity deep vein thrombosis. She was initially treated with Coumadin therapy and Lovenox. Her DVT progressed to require and she required mechanical thrombectomy. She was discharged on Coumadin but then had recurrent phimosis. She was readmitted and underwent repeat venous mechanical thrombectomy. She now feeling much better. She has been heparinized for the last 2 days. From a vascular surgery standpoint she may be discharged home today. Recommend continuing anticoagulation. Per hematology recommendations the patient will be discharged with Lovenox 1 mg/kg twice daily. She will follow-up in vascular surgery in 1 month for further evaluation. She is advised to continue with her compression stocking. Qualifiers: Affected thrombotic vein of extremity: iliac Chronicity: acute Laterality : left Qualified Code(s): I82.422 - Acute embolism and thrombosis of left iliac vein - Subjective Interval history: The patient continues to slowly feel better. She does report some left thigh pressure. She denies chest pain or shortness of breath. Vital Signs, Last 4 Hours Temp Pulse Resp BP Pulse Ox 01/02/18 12:12 97.7 F 68 15 112/80 97 - Physical Examination General: Present: Conversant Cardiac: Present: Reg Rate and Rhythm Lungs: Present: Normal Breath Sounds Neuro: Present: Alert and responsive, No focal deficits noted Vascular: Present: Normal capillary refill, Pulse, normal, Edema (Trace left lower extremity edema), Surgical incisions (No hematoma), Other Abdomen: Present: Soft - VTE Documentation of Mechanical Device: Intermittent pneumatic compression device Results 01/02/18 12:24 01/02/18 12:24 Lab Results, Last 24 hours 01/02/18 01/02/18 01/02/18 08:18 12:24 12:24 WBC 6.6 D Hgb 10.1 L Hct 30.7 L Plt Count 257 APTT 80.4 H Sodium 140 Potassium 3.9 Chloride 108 H Carbon Dioxide 26 BUN 5 L Creatinine 0.52 L Glucose 75 Calcium 9.3 Consult Discharge Plan - Plan Referrals: Tayla Kaur MD [Primary Care Provider] -
--- NOTE | 2018-01-02 14:38 | Discharge Summary ---
- NOTES TO OUTPATIENT PROVIDER Notes to Outpatient Provider: Lovenox 70 mg subcutaneous twice daily while lactating and once completed to transition to factor X A inhibitors like Eliquis. Orders not resulted at time of discharge: Pending orders 12/30/17 22:30 XR knee LT limited 1-2V [XR] Routine XR pelvis AP view [XR] Routine Date of Encounter: 01/02/18 Time of Encounter: 11:00 - Discharge Diagnosis (1) Deep vein thrombosis of lower extremity Priority: Primary Status: Acute Qualifiers: Affected thrombotic vein of extremity: iliac Chronicity: acute Laterality : left Qualified Code(s): I82.422 - Acute embolism and thrombosis of left iliac vein (2) Lactating mother Priority: Secondary Status: Chronic (3) anemia Priority: Secondary Status: Chronic Hospital course: Patient is a 37-year-old female with past medical history significant for left DVT s/p thrombectomy, G3 post- who presents to the ER for worsening left thigh pain. Pt was recently discharged from the hospital on 12/25/17 after being treated for left DVT and underwent left thigh hematoma evacuation by vascular surgery. She was discharged on Coumadin. Her INR was noted to be 4.4 on 12/26/17 and as per her PCP's recommendation, she held her Coumadin for two days and lowered the dose. She is noted to have INR of 1.9 today and venous Doppler of LLL reported an acute DVT. She was admitted to the medical surgical floor for further management. During patients hospital stay vascular surgery was consulted with recommendations for lower extremity venous mechanical thrombectomy and left femoral to popliteal venous angioplasty in addition to left iliac venous angioplasty. Hematology oncology was also consulted with recommendations for Lovenox 70 mg subcutaneous twice daily while lactating and once completed to transition to factor X A inhibitors like Eliquis. She will be discharged to follow-up with hematology/oncology, vascular surgery and primary care provider. - Time Spent with Patient Total time spent providing and/or coordinating discharge services: Less than 30 minutes - Discharge Medications Prescriptions: Enoxaparin [Lovenox] 70 mg SQ Q12HR #60 syr cephALEXin [Keflex] 500 mg PO BID #14 capsule Ferrous Sulfate 325 mg PO DAILY@0800 #30 tablet Home Medications: Enoxaparin [Lovenox] 70 mg SQ Q12HR #60 syr 01/02/18 [Rx] Ferrous Sulfate 325 mg PO DAILY@0800 #30 tablet 01/02/18 [Rx] cephALEXin [Keflex] 500 mg PO BID #14 capsule 01/02/18 [Rx] Allergies/Adverse Reactions: 3 Allergy/AdvReac Type Severity Reaction Status Date / Time No Known Allergies Allergy Verified 12/29/17 10:15 Date of admission: 12/30/17 15:28 Primary care physician: Tayla Kaur - Constitutional Vitals: Temp Pulse Resp BP Pulse Ox 97.7 F 68 15 112/80 97 01/02/18 12:12 01/02/18 12:12 01/02/18 12:12 01/02/18 12:12 01/02/18 12:12 General appearance: Present: cooperative, A&O X 3, no acute distress, answers questions appropriately - Skin Skin exam: Present: normal color - Patient Status Disposition: Home, Self-Care Condition: Good - Discharge Instructions Follow Up With: Delfino Alvarez MD [Partnered Physician] - Tayla Kaur MD [Primary Care Provider] - Additional Instructions: IF SYMPTOMS RETURN GO TO ER KEEP ALL APPOINTMENTS. TAKE MEDS PRESCRIBED YOU SHOULD WEAR YOUR COMPRESSION STOCKINGS - VTE Documentation of Mechanical Device: Intermittent pneumatic compression device
[2018-01-02] MEDS ORDERED: *HR* Enoxaparin 80 MG/0.8 ML SYRINGE SQ ONE (14:54)
[2018-01-02 16:45] LABS: Prothrombin G20210A Specimen WHOLE BLOOD
[2018-01-02 18:56] LABS: FACV Specimen WHOLE BLOOD
[2018-01-03 07:16] LABS: Fac V Leiden R506Q Mut Result NEGATIVE; Prothrombin G20210A Mut Result NEGATIVE
== END 2018-01-02 15:27 | disposition home or self-care (01) | DRG 769 ==
LOC: EMEROO 10:09 → 3ANU 10:09 → 3NENU 15:47 → SUATTDRO 12-30 15:28
PROVIDERS: ADMIT Internal Medicine; ATTEND Hospitalist